=== PATIENT | male | born 1950 | race Caucasian/White ===

== ENCOUNTER 2019-06-10 09:43 | Outpatient (CLI) | payer MEDICARE, SELFPAY ==
--- NOTE | ~2019-06-10 | NM_ITS ---
NM bone 3 phase INDICATION: Left knee pain TECHNIQUE: The patient was injected with 25.9 mCi Tc 99m HDP. Gamma camera images of the region of i nterest and whole body were obtained. Three-phase images were obtained. COMPARISON: None FINDINGS: There is normal distribution of radiopharmaceutical throughout the skeletal and soft tissue structures. No focal asymmetry is identified. Photopenic defects in the knees are noted consistent w ith bilateral knee arthroplasties. Initial blood flow and pool images are symmetric. IMPRESSION: 1: No scintigraphic evidence for abnormality of the knees. There is evidence for bilateral knee arth roplasties. Recommend plain film correlation. Reviewed, dictated and finalized at location A. IMPRESSION: 1: No scintigraphic evidence for abnormality of the knees. There is evidence f or bilateral knee arthroplasties. Recommend plain film correlation.
== END 2019-06-10 09:44 | disposition home or self-care (01) ==
LOC: ANHIMG 09:46
PROVIDERS: PCP Family Medicine
DX: M25.562 Pain in left knee (principal)
CPT/HCPCS: 78315; A9561

== ENCOUNTER 2019-12-16 12:55 | Outpatient (CLI) | payer MEDICARE, SELFPAY ==
[2019-12-16 13:49] LABS: Influenza Control Positive
== END 2019-12-16 12:56 | disposition home or self-care (01) ==
PROVIDERS: PCP Family Medicine; Visit Provider Family Medicine
DX: R50.9 Fever, unspecified (principal)
CPT/HCPCS: 87635; 87804; C9803; U0003

== ENCOUNTER 2021-05-21 10:20 | Outpatient (CLI) | payer MEDICARE, SELFPAY ==
--- NOTE | ~2021-05-21 | NM_ITS ---
EXAMINATION: NM bone 3 phase DATE: 05/21/2021 14:08 INDICATION: Knee pain TECHNIQUE: 23.6 mCi Tc-99m HDP by intravenous route. Scintigrams of the bilateral knees were obtaine d in angiographic, blood pool, and delayed phases. COMPARISON: None. FINDINGS: There are photopenic defects at both knees consistent with bilateral total knee arthroplasties. Rimma l symmetric distribution of activity on the angiographic phase images. There is relatively symmetric normal linear uptake along the margins of the both the left and right tibial trays. There is also rel atively symmetric uptake in the bilateral distal femurs which also appears to remain within normal li mits. IMPRESSION: 1. Expected appearance post bilateral total knee arthroplasties. Reviewed, dictated and finalized at location A. CLERKS SUPERVISOR
== END 2021-05-21 10:21 | disposition home or self-care (01) ==
LOC: ANHIMG 10:23
PROVIDERS: PCP Family Medicine; Visit Provider Orthopaedic Surgery
DX: M25.561 Pain in right knee (principal); Z96.653 Presence of artificial knee joint, bilateral
CPT/HCPCS: 78315; A9561

== ENCOUNTER 2022-01-05 11:37 | Day surgery (SDC) | payer MEDICARE, SELFPAY ==
[2021-12-21 12:47] VITALS: BMI 26.9
--- NOTE | 2022-01-04 17:58 | P.HP_ITS ---
History of Present Illness History of Present Illness Consent: Risks, benefits, and alternatives have been discussed and questions answered. Patient agrees to proceed with procedure. Chief complaint: History of Polyps Narrative: Mac Babb is a 71 year old male here for colon cancer screening. Five years ago he had a colonoscopy that the apparently showed lymphocytic colitis. It appears that he also had some small rectal polyps removed which were all hy perplastic. His father had colon cancer Review of Systems Review of Systems: All systems reviewed & are unremarkable except as noted in HPI and below PMFSH Past Medical History Medical History Hyperlipidemia Family History Family History Father Cerebrovascular accident Family history of congestive heart failure Sibling Malignant neoplasm of prostate Other Carcinoma of colon Family history of lung cancer Social History Social History Smoking status: Former smoker Second hand tobacco smoke exposure: No Smoking end date: 04/03/94 Alcohol intake: current Substance use type: does not use Living arrangements: with family Spiritual care concerns: No Meds Home Medications and Allergies Home Medications Medication Instructions Recorded Confirmed Type sodium sul 1.479 gram-potas ch See Rx Instructions PO PER PKG DIR 09/15/21 Rx 0.188 gram-magnes sul 0.225 gram #24 tabs tablet (Sutab) aspirin 81 mg capsule 81 mg PO DAILY 12/21/21 01/05/22 History diclofenac sodium 75 mg 75 mg PO DAILY 12/21/21 01/05/22 History tablet,delayed release doxycycline hyclate 50 mg tablet 50 mg PO DAILY 12/21/21 01/05/22 History ezetimibe 10 mg tablet 10 mg PO DAILY 12/21/21 01/05/22 History multivit with minerals-iron 18 1 tablet PO DAILY 12/21/21 01/05/22 History mg-folic ac 400 mcg-vit K 25 mcg tablet (Adults Multivitamin) Allergies Allergy/AdvReac Type Severity Reaction Status Date / Time No Known Allergies Allergy Verified 01/05/22 12:05 Exam Resp: Auscultation: clear to auscultation bilaterally Cardio: Rate: regular rate Rhythm: regular rhythm GI: GI Palp: Yes Soft to palpation and No Tenderness to palpation present (GI) Assessment and Plan Assessment and plan (1) Colon cancer screening: Code(s): Z12.11 - Encounter for screening for malignant neoplasm of colon Status: Acute Assessment and Plan: Colonoscopy with possible biopsy or polypectomy or cautery or injection of substances. (2) Family history of colon cancer: Code(s): Z80.0 - Family history of malignant neoplasm of digestive organs Status: Acute
[2022-01-05 12:16] VITALS: BMI 27.1
[2022-01-05 12:20] VITALS: BP 133/89; PULSE 72; RESP 16; TEMP 36.9; O2SAT 99
[2022-01-05] MEDS: LACTATED RINGERS 1,000 ML 150 ML IV CONT (12:31)
--- NOTE | 2022-01-05 12:53 | P.PNAN_ITS ---
Anes - Initial Pre Proc Eval Procedure: Operation Date: 01/05/22 13:15 Proposed Procedures p Screening Colonoscopy - Aris Joshua MD Date/Time: 01/05/22 12:53 Surgeon: Aris Joshua MD Pre Op Diagnosis: History of Polyps Patient Data Age: 71 Gender: M Height: 1.71 m Weight: 79.8 kg Last Vital Signs Temp 36.9 C 01/05/22 12:20 Pulse 72 01/05/22 12:20 Resp 16 01/05/22 12:20 BP 133/89 01/05/22 12:20 Pulse Ox 99 01/05/22 12:20 O2 Del Method Room Air 01/05/22 12:20 Allergies Allergy/AdvReac Type Severity Reaction Status Date / Time No Known Allergies Allergy Verified 01/05/22 12:05 Home Medications Medication Instructions Recorded Confirmed Type sodium sul 1.479 gram-potas ch See Rx Instructions PO PER PKG DIR 09/15/21 Rx 0.188 gram-magnes sul 0.225 gram #24 tabs tablet (Sutab) aspirin 81 mg capsule 81 mg PO DAILY 12/21/21 01/05/22 History diclofenac sodium 75 mg 75 mg PO DAILY 12/21/21 01/05/22 History tablet,delayed release doxycycline hyclate 50 mg tablet 50 mg PO DAILY 12/21/21 01/05/22 History ezetimibe 10 mg tablet 10 mg PO DAILY 12/21/21 01/05/22 History multivit with minerals-iron 18 1 tablet PO DAILY 12/21/21 01/05/22 History mg-folic ac 400 mcg-vit K 25 mcg tablet (Adults Multivitamin) Patient hx anesthesia problems: none Family hx anesthesia problems: none Results Review: All pre-operative results and documents have been reviewed as part of the pre- operative evaluation. PMFSH Past Medical History Medical History Hyperlipidemia Family History Family History Father Cerebrovascular accident Family history of congestive heart failure Sibling Malignant neoplasm of prostate Other Carcinoma of colon Family history of lung cancer Social History Social History Smoking status: Former smoker Second hand tobacco smoke exposure: No Smoking end date: 04/03/94 Alcohol intake: current Substance use type: does not use Living arrangements: with family Spiritual care concerns: No Anes - Eval Final PreProcedure Day of Procedure 01/05/22 12:53 Patient weight: overweight Heart: regular rate and rhythm Lungs: clear to auscultation Airway: Mallampati scale class 1 Neurological: alert and oriented Last oral intake: >/= 8 hours ASA classification: II Emergent: no Anesthetic plan: proceed Anesthesia type and monitoring: general GIVS and standard monitoring Results Review: All pre-operative results and documents have been reviewed as part of the pre- operative evaluation. Informed Consent: The patient's anesthetic plan and its attendant risks and benefits were discussed with the patient/family/POA. Questions were solicited and answers provided to the satisfaction of the patient/family/POA.
[2022-01-05 13:30] VITALS: BP 109/70; PULSE 87; RESP 16; O2SAT 100
[2022-01-05 13:40] VITALS: BP 108/82; PULSE 76; RESP 20; O2SAT 98
--- NOTE | 2022-01-05 13:47 | WPDANESPN ---
Anes - Prog Note Post-Op Date/Time: 01/05/22 13:47 Cardiovascular status: normal Respiratory status: normal Airway patency: baseline Mental status: baseline Post-Op hydration status: normal Vital Signs: Last Vital Signs Temp 36.9 C 01/05/22 12:20 Pulse 76 01/05/22 13:40 Resp 20 01/05/22 13:40 BP 108/82 01/05/22 13:40 Pulse Ox 98 01/05/22 13:40 O2 Del Method Room Air 01/05/22 13:40 Pain Score (VAS): 0 I/O: Intake & Output 01/04/22 01/05/22 01/05/22 23:59 07:59 15:59 Intake Total 200 Balance 200 Patient Feedback: Patient satisfied with anesthetic care.
[2022-01-05 13:50] VITALS: BP 121/86; PULSE 80; RESP 20; O2SAT 98
== END 2022-01-05 13:57 | disposition home or self-care (01) ==
PROVIDERS: PCP Family Medicine; Visit Provider Internal Medicine Gastroenterology
PROC: 0DJD8ZZ Inspection of Lower Intestinal Tract, Via Natural or Artificial Opening Endoscopic (ICD-10-PCS; CPT 45378; principal; 2022-01-05 13:15)
DX: Z12.11 Encounter for screening for malignant neoplasm of colon (principal)
CPT/HCPCS: 45380

== ENCOUNTER 2022-01-05 13:00 | Outpatient (NON) | payer MEDICARE, SELFPAY | END 2022-01-05 13:01 | disposition home or self-care (01) | LOC: ANHLAB 01-06 07:23 | PROVIDERS: PCP Family Medicine; Visit Provider Internal Medicine Gastroenterology | DX: Z12.11 Encounter for screening for malignant neoplasm of colon (principal) | CPT/HCPCS: 88305 ==

== ENCOUNTER → 2022-03-01 10:47 | Outpatient (CLI) | payer MEDICARE, SELFPAY ==
--- NOTE | ~2022-03-01 | MR_ITS ---
EXAMINATION: MR thoracic spine wo/w con DATE: 03/01/2022 12:01 INDICATION: Mid back pain. Left sided numbness. TECHNIQUE: Magnetic resonance imaging (MRI) of the thoracic spine was performed without and with 15 m L MultiHance intravenous contrast. COMPARISON: None FINDINGS: There is 6 degrees dextrocurvature of cervicothoracic spine. There is mild chronic height l oss of T7 and T8 vertebral bodies. There is mild chronic anterior wedging of T11 and T12 and L1 verte bral bodies. There is moderately decreased disc height at T7-T8 and mildly decreased disc height at T 9-T10. At T7-T8, the disc is bulging with mild central canal stenosis. At T8-T9, the disc is bulging with mild central canal stenosis. There is multilevel facet joint osteoarthritis, severe at multiple levels. On the right, there is mild neural foraminal stenosis at T1-T2 and T2-T3 and moderate neural foraminal stenosis at T9-T10. On the left, there is mild neural foraminal stenosis at T1-T2, T2-T3, a nd T9-T10. There is a syrinx in the spinal cord at T6-T7 with diameter of 3 mm and craniocaudal lengt h of 8 mm. IMPRESSION: 1. 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 2. Moderate thoracic spondylosis. Reviewed, dictated and finalized at location A. RSHED TENDER
== END ==
PROVIDERS: PCP Family Medicine; Visit Provider Psychiatry & Neurology Neurology
DX: R20.0 Anesthesia of skin (principal); M43.04 Spondylolysis, thoracic region
CPT/HCPCS: 72157; A9577

== ENCOUNTER 2023-11-01 10:42 | Outpatient (CLI) | payer MEDICARE, SELFPAY ==
--- NOTE | ~2023-11-01 | CT_ITS ---
Clinical Indication: Chronic cough, mediastinal widening CT Scan of the Chest with Contrast: Technique: Contiguous sections were acquired throughout the chest after intravenous administration of 75 cc of Omnipaque 350. Dose reduction technique was used on this scan by utilizing automated exposu re control and iterative reconstruction technique. The dose-length product (DLP) was 319.30 mGy-cm. Findings: There is no evidence of any significant mediastinal, hilar or axillary lymphadenopathy. There is no f illing defect in the pulmonary arterial tree to suggest pulmonary embolus. There is no evidence of ao rtic dissection or aneurysm. There is no evidence of pleural or pericardial effusion. The lungs are clear. No pulmonary nodules or infiltrates are noted. Images through the upper abdomen reveal no abnormalities. Impression: No evidence of pulmonary embolus, aortic dissection, or aortic aneurysm. Clear lungs. Reviewed, dictated and finalized at [facility]. Impression: No evidence of pulmonary embolus, aortic dissection, or aortic aneurysm. Clear lungs.
[2023-11-01 10:57] LABS: Estimated Glomerular Filt Rate 60
== END 2023-11-01 10:43 ==
LOC: MICIMG 10:43
PROVIDERS: PCP Family Medicine; Visit Provider Family Medicine
DX: R93.89 Abnormal findings on diagnostic imaging of other specified body structures (principal)
CPT/HCPCS: 71260; Q9967

== ENCOUNTER 2024-08-22 01:46 | Day surgery (SDC) | payer MEDICARE, SELFPAY ==
[2024-08-14 12:15] VITALS: BMI 28.0
--- OUTSIDE RECORDS SUMMARY | 2024-08-22 01:49 | XMS_ITS | Encounter Summary ---
Author Organization [facility] Address [address] [place] [address] Care Team Providers Care Roller Hand Name Role Phone Georgina Banks MD Primary Care Provider [phone] Encounter Details Date Type Department Care Team (Late st Contact Info) Description 03/14/2018 Lab Requisition [facility] [address] [facility], [place] [address] [place] [address] Social History Tobacco Use Types Packs/Day Years Used Date Smoking Tobacco: Never Assessed Sex and Gender Information Value Date Recorded Sex Assigned at Not on file Legal Sex Male 5:25 AM MARGARINE MAKER Gender Identity Not on file Sexual Orientation Not on file documented as of this encounter Plan of Treatment Not on file documented as of this encounter Procedures Procedure Name Priority Date/Time Associated Diagnosis Comments DERMATOPATHOLOGY Routine 03/13/2018 12:0 0 AM MARGARINE MAKER documented in this encounter Results * DERMATOPATHOLOGY (03/13/2018 12:00 AM MARGARINE MAKER) Case Report Dermatopathology Report Case: [id number] Authorizing Provider: Nik Parr MD Collected: 03/13/2018 12:00 AM Pathologist: Brina Elias MD Received: 03/14/2018 12:35 PM Specimen: Skin, left lat canthus 8 12:37 PM MARGARINE MAKER [facility]ORAT[facility] Final Diagnosis Specimen A. SKIN, left lat canthus: VERRUCA VULGARIS (B07.8) (see microscopic description) 12:37 PM [facility] DERMATOPATHOLOGY LABORATORY at [address] MARGARINE MAKER Clinical History R/O dys nevus. 12:37 PM [facility] DERMATOPATHOLOGY [facility]ORATORY Gross Description Specimen A: Received is one formalin filled container labeled with the patient's name and designated left lat canthus. The specimen consists of a shave biopsy measuring [id number]. Jar 0. 12:37 PM [facility] DERMATOPATHOLOGY LABORATORY Microscopic Description Specimen A. SKIN, left lat canthus: There is digitated epidermal hyperplasia, hypergranulosis, vacuolated granular layer cells, and compact hyperorthokeratosis . Additional deeper sections were obtained and reviewed. 12:37 PM [facility] DERMATOPATHOLOGY LABORATORY Disclaimer An external and internal positive and negative controls are appropriate for the histochemical, immunohistochemical and immunofluorescence stain(s) in this case (if any), except where stated explicitly. The performance characteristics of the stain(s) cited in this report were developed and its performance characteristic determined by the Dermatopathology Laboratory at [facility]. These tests need not be, and therefore are not, approved by the [place] Food and Drug Administration. The tests are used for clinical purposes. Billing Codes Specimen Charges Stain Charges 65022 1 12:37 PM [facility] DERMATOPATHOLOGY LABORATORY Embedded Images 12:37 PM [facility] DERMATOPATHOLOGY LABORATORY Pathology/Cytolog y TISSUE SPECIMEN FROM SKIN / Unknown 03/13/2018 03/14/2018 12:35 PM [facility] us Nik Parr MD LAB - PATHOLOGY/CYTOLOGY ORD ERABLES Final Result DERMATOPATHOLOGY LABORATORY [facility] - Department of Dermatology [facility] [facility], 5th Floor Lab B [address] [phone] documented in this encounter Visit Diagnoses Not on filedocumented in this encounter Additional Health Concerns Infection Onset Date Last Indicated Resolved Time COVID-19 Under Investigation 10/06/2019 10/06/2019 10/07/2019 6:11 PM CDT documented as of this encounter Care Teams Roller Hand Relationship Specialty Start Date End Date Georgina Banks MD [address] [place] [address] PCP - General 01/13/22 documented as of this encounter
--- OUTSIDE RECORDS SUMMARY | 2024-08-22 01:49 | XMS_ITS | Encounter Summary ---
Author Organization [facility] Address [address] [place] [address] Care Team Providers Care Precision Mechanical Instrument Maker Name Role Phone Georgina Banks MD Primary Care Provider [phone] Encounter Details Date Type Department Care Team (Late st Contact Info) Description 08/02/2017 Lab Requisition [facility] [address] [facility] [place] [address] [place] [address] Social History Tobacco Use Types Packs/Day Years Used Date Smoking Tobacco: Never Assessed Sex and Gender Information Value Date Recorded Sex Assigned at Not on file Legal Sex Male 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 Gender Identity Not on file Sexual Orientation Not on file documented as of this encounter Plan of Treatment Not on file documented as of this encounter Procedures Procedure Name Priority Date/Time Associated Diagnosis Comments DERMATOPATHOLOGY Routine 08/01/2017 12:0 0 AM CDT documented in this encounter Results * DERMATOPATHOLOGY (08/01/2017 12:00 AM CDT) Case Report Dermatopathology Report Case: [id number] Authorizing Provider: Nik Parr MD Collected: 08/01/2017 12:00 AM Pathologist: Brina Elias MD Received: 08/02/2017 12:43 PM Specimens: A) - Skin, right nape of neck inside hairline B) - Skin, glabella 8 3:43 PM CDT DERMATOPATHOLOGY LABORATORY Final Diagnosis Specimen A. SKIN, right nape of neck inside hairline: NEUROFIBROMA (D36.10) PRESENT AT MARGIN Specimen B. SKIN, glabella: DERMAL FIBROSIS (L90.5) SOLAR ELASTOSIS (L57.8) PRESENT AT MARGIN 3:43 PM T DERMATOPATHOLOGY LABORATORY at 1543 CDT Clinical History A: R/O BCC, LSC. B: R/O BCC, SCC, Scar tissue. Check margins. 3:43 PM CDT DERMATOPATHOLOGY LABORATORY Gross Description Specimen A: Received is one formalin filled container labeled with the patient's name and designated right nape of neck inside hairline. The specimen consists of a shave biopsy measuring [id number], the margin is inked green. Jar 0. Specimen B: Received is one formalin filled container labeled with the patient's name and designated glabella. The specimen consists of a shave (2 pieces) biopsy measuring [id number], [id number], the margin is inked green. Jar 0. 3:43 PM [facility] DERMATOPATHOLOGY LABORATORY Microscopic Description Specimen A. SKIN, right nape of neck inside hairline: Sections show a proliferation of spindled and S-shaped cells within the dermis. The stromal collagen is delicate and pale. This lesion is present at the margin of the specimen. Specimen B. SKIN, glabella: The epidermis is unremarkable. There is focal dermal fibrosis. Tumor is not present in the sections examined. The dermis also shows a proliferation of elastic fibers in the superficial dermis that are increased in thickness. Tumor is not seen. This fibrosis is present at the margin of the specimen. 3:43 PM [facility] DERMATOPATHOLOGY LABORATORY Disclaimer An external and internal positive and negative controls are appropriate for the histochemical, immunohistochemical and immunofluorescence stain(s) in this case (if any), except where stated explicitly. The performance characteristics of the stain(s) cited in this report were developed and its performance characteristic determined by the Dermatopathology Laboratory at [facility]. These tests need not be, and therefore are not, approved by the [place] Food and Drug Administration. The tests are used for clinical purposes. Billing Codes Specimen Charges Stain Charges 97431 40967 1 1 3:43 PM CDT DERMATOPATHOLOGY LABORATORY Embedded Images 8 3:43 PM CDT DERMATOPATHOLOGY LABORATORY Pathology/Cytology TISSUE SPECIMEN FROM SKIN / Unknown 08/01/2017 08/02/2017 12:43 PM CDT Miscellaneous samples (specimen) TISSUE SPECIMEN FROM SKIN / Unknown 08/01/2017 08/02/2017 12:43 PM CDT Nik Parr MD LAB - PATHOLOGY/CYTOLOGY ORD ERABLES Final Result DERMATOPATHOLOGY LABORATORY [facility] - Department of Dermatology [address] [place] [address], 5th Floor Lab [address] [phone] documented in this encounter Visit Diagnoses Not on filedocumented in this encounter Additional Health Concerns Infection Onset Date Last Indicated Resolved Time COVID-19 Under Investigation 10/06/2019 10/06/2019 10/07/2019 6:11 PM CDT documented as of this encounter Care Teams Precision Mechanical Instrument Maker Relationship Specialty Start Date End Date Georgina Banks MD [facility] [place] [address] PCP - General 01/13/22 documented as of this encounter
--- OUTSIDE RECORDS SUMMARY | 2024-08-22 01:49 | XMS_ITS | Clinical Summary ---
Author Organization [facility] Address [address] [place]: Epic Prelude ADT [place] [address] Care Team Providers Care Residential Recycle Driver Name Role Phone Unavailable Primary Care Provider Unavailabl e Social History Tobacco Use Types Packs/Day Years Used Date Smoking Tobacco: Never Assessed Sex and Gender Information Value Date Recorded Sex Assigned at Not on file Legal Sex Male 10:43 PM CDT Gender Identity Not on file Sexual Orientation Not on file Plan of Treatment Health Maintenance Due Date Last Done Comments DTAP/TDAP/TD VACCINES (1 - Tdap) 1970 COLORECTAL SCREENING 01/26/1996 Colorectal Cancer Screening 01/26/1996 FIT-DNA Q 3 years 01/26/1996 FIT/FOBT Q 1 year 01/26/1996 Flex Sig/CT Colonography Q 5 years 01/26/1996 PNEUMOCOCCAL VACCINE 50+ YEARS (1 of 1 - PCV) 01/26/20 ZOSTER VACCINE (1 of 2) 2001 INFLUENZA VACCINE (#1) 2023 RSV VACCINE (60+ or ) (1 - 1-dose 75+ series) 2026
--- OUTSIDE RECORDS SUMMARY | 2024-08-22 01:49 | XMS_ITS | Encounter Summary ---
Author Organization [facility] Healthcare Address [address] [place] [address] Care Team Providers Care Scale Clerk Name Role Phone Georgina Banks MD Primary Care Provider [phone] Mo Cullen MD Unavailable [phone] Jaime Pierce MD Unavailable [phone] Aris Joshua MD Unavailable [phone] Rhonda BarrettM Unavailable [phone] Sanjay Rodriguez MD, Trever Carlson Unavailable + [phone] Maximus Wilcox OD Unavailable [phone] Alexi May MD Unavailable Lucas Brito MD Primary Care Provider [phone] Encounter Details Date Type Department Care Team (Late st Contact Info) Description 07/17/2018 Telephone [facility] at [facility] [address] [place] [address] Ryan Agarwal MD 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 Not on file Not on file documented as of this encounter Plan of Treatment Not on file documented as of this encounter Visit Diagnoses Not on filedocumented in this encounter Additional Health Concerns Infection Onset Date Last Indicated Resolved Time COVID: Suspected 05/03/2024 05/03/2024 05/03/2024 6:22 PM FLOAT TENDER COVID: Suspected 05/03/2024 05/03/2024 05/03/2024 11:34 PM FLOAT TENDER documented as of this encounter Care Teams Scale Clerk Relationship Specialty Start Date End Date Georgina Banks MD PCP - General Family Medicine 06/25/18 09/25/23 Lucas Brito MD [facility] [address] [place] [address] PCP - General Family Medicine 09/26/23 Mo Cullen MD [address] [place] [address] [address] [place] [address] Consulting Physician Urology 09/26/23 Jaime Pierce MD [address] [address] Referring Physician Neurology 09/26/23 Aris Joshua MD [address] [place] [address] [address] [place] [address] Referring Physician Gastroenterology 09/26/23 Rhonda Barrett DPM [address] [place] [address] [place] [address] Consulting Physician Foot and Ankle Surg 09/26/23 [place] [address] [facility] [address] [place] [address] Consulting Physician Orthopedic Surgery 09/26/23 Maximus Wilcox OD [address] [place] [address] Optometry 09/26/23 Alexi May MD [address] [address] Referring Physician Dermatology 09/26/23 documented as of this encounter
--- OUTSIDE RECORDS SUMMARY | 2024-08-22 01:49 | XMS_ITS | Clinical Summary ---
Author Organization [facility] Address [address] [place] [address] Care Team Providers Care Live Truck Technician Name Role Phone Mo Cullen MD Unavailable [phone] Jaime Pierce MD Unavailable [phone] Aris Joshua MD Unavailable [phone] Rhonda Barrett DPM Unavailable [phone] Sanjay Rodriguez MD, [facility] Unavailable + [phone] Maximus Wilcox OD Unavailable [phone] Alexi May MD Unavailable Lucas Brito MD Primary Care Provider [phone] Allergies No known active allergies Medications artificial tears (SYSTANE) 0.3 % gel Apply to both eyes Active aspirin 81 mg enteric coated tablet Take 1 tablet (81 mg total) by mouth fuel cell repairer before breakfast Active doxycycline hyclate (VIBRAMYCIN) 50 mg capsule Take 1 capsule (50 mg total) by mouth 2 (two) times a day Active diclofenac DR (VOLTAREN) 50 mg EC tablet TAKE 1 TABLET (50 MG TOTAL) BY MOUTH 2 (TWO) TIMES A DAY NEEDED FOR PAIN TAKE WITH FOOD 200 tablet 1 4 Active ezetimibe (ZETIA) 10 mg tablet TAKE 1 TABLET BY MOUTH EVERY DAY 100 tablet 1 4 Active fish oil-dha-epa 1,200-144-216 mg capsule Take by mouth Activ e lactobacillus comb no.10 (Probiotic) 20 billion cell capsule Take by mouth Active promethazine-DM (PROMETHAZINE-D M) 1.25-3 mg/mL syrupIndication s:Acute cough Take 10 mL by mouth 4 (four) times a day as needed for cough 120 mL 5 Active Active Problems Problem Noted Date Diagnosed Date Encounter for Medicare annual wellness exam 03/03 Assessment & Plan (03/18/2024 11:29 AM MARKETING TRAFFIC COORDINATOR): A(n) yearly Medicare Annual Wellness Visit has been performed today. Mac Babb is not up to date on screening tests. He is in need of Prostate screening and AAA Screening. He is up to date on needed preventative vaccinations. We discussed healthy lifestyle habits, educational material has been given. Medications reviewed, changes documented as per the medical record and discussed with patient along with risks vs benefits. Specific topics reviewed: drugs, ETOH, and tobacco, importance of regular dental care, importance of regular exercise, importance of varied diet, limit TV, media violence, minimize junk food, and seat belts. Return in 6 months Diverticulosis 03/18/2024 Numbness and tingling sensation of skin 09/26/19 24 Assessment & Plan (09/26/2023 12:53 PM CDT): On left side of trunk, intermittent. Has seen Neurologist in the past and thought to be related to lumbar back pain (chronic). Mixed hyperlipidemia 09/26/2023 Assessment & Plan (09/26/2023 12:54 PM CDT): Continuing Zetia, no side effects reported. Updated labs ordered. Arthralgia of left knee 11/30/2022 Knee pain 11/30/2022 Impaired fasting glucose 11/17/2022 Arthralgia of right knee 09/21/2021 Insomnia 06/15/2020 Lymphocytic colitis 09/19/2019 Assessment & Plan (09/26/2023 12:53 PM CDT): Stable overall, follows with GI. Acute dermatitis 05/13/2018 Carcinoma of prostate 05/13/2018 Prostate Cancer Assessment & Plan (09/26/2023 12:52 PM CDT): Hx of prostate removal. Follows with Urology, has appt in the fall where they will check his PSA. Ocular rosacea Assessment & Plan (09/26/2023 12:52 PM CDT): Following with Dermatology. Inflammatory bowel disease Resolved Problems Problem Noted Date Diagnosed Date Resolved Date Persistent cough 09/26/2023 09/26/2023 Upper respiratory infection 09/26/2023 09/26/2023 Immunizations Immunization Administration Dates Next Due COVID-19 mRNA (Global Active) 0.3 m L (30 mcg) vaccine (12 years and up) 12/07/2023 Influenza, Quad, Adjuvantate d, Intramuscular 12/21/2020,12/30/2019 Influenza, Quadrivalent, Hig h Dose, Preservative Free, Intrr 12/19/2022,12/15/2021 Influenza, Trivalent, High D ose, Split, Preservative Free, Intramuscular 12/07/2023,12/28/2018,01/02/2018,02/07 Influenza, Trivalent, IM (MDV) 02/08/2013 Influenza, Unspecified 12/07/2023,2023(Deferred: Patient Refused),04/03/2022(Deferred: Patient Refused) Moderna SARS-CoV-2 Monovalen t Vaccination (12+ YRS) 05/26/2020,04/28/2020 Pneumococcal Conjugate PCV 13 03/10/2017 Pneumococcal Polysaccharide PPV23 01/02/2018 RSV Vaccine, Pref, Recombina nt, Subunit, Adjuvanted, PF, IM (Arexvy) 04/14/2023 Surgical History Surgery Date Site/Laterality Comments KNEE SURGERY 04/03/2007 - 04/02/2008 Bilateral [facility] PROSTATECTOMY 04/03/2002 - 04/02/2003 dr rosa m gray [facility] APPENDECTOMY 04/03/2016 - 04/02/2017 dr [facility] CARPAL TUNNEL RELEASE 04/03/2013 - 04/02/[address] [facility] TIBIA OSTEOTOMY Medical History Medical History Date Comments Prostate Cancer Inflammatory bowel disease Prostate cancer (HCC) Arthritis Lateral meniscus tear Carpal tunnel syndrome, bilateral Rosacea Ocular rosacea Family History Medical History Relation Name Comments Prostate cancer Brother Clotting disorder Daughter Cancer Father Stroke Father Brain cancer Maternal Grandfather Breast cancer Maternal Grandmother Lung cancer Mother cardiovascular disease Mother Relation Name Status Comments Brother Daughter Father Maternal Grandfather Maternal Grandmother Mother Social History Tobacco Use Types Packs/Day Years Used Date Smoking Tobacco: Former Cigarettes 1 30 1 974 - 2004 Tobacco Cessation:Counseling Given: Not Answered PHQ-2 Answer Date Recorded PHQ-2 Total Score (If total score is 3 or more points, staff should administer the PHQ-9) 0 03/18/2024 Sex and Gender Information Value Date Recorded Sex Assigned at Not on file Legal Sex Male 11:57 PM MARKETING TRAFFIC COORDINATOR Gender Identity Not on file Sexual Orientation Not on file 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 Not on file Not on file Obstetrics History Last Filed Vital Signs Vital Sign Reading Time Taken Comments Blood Pressure 124/74 05/03/2024 5:47 PM MARKETING TRAFFIC COORDINATOR Pulse 74 05/03/2024 5:47 PM MARKETING TRAFFIC COORDINATOR Temperature 36.7 C (98 F) 05/03/2024 5:47 PM MARKETING TRAFFIC COORDINATOR Respiratory Rate 18 05/03/2024 5:47 PM MARKETING TRAFFIC COORDINATOR Oxygen Saturation 98% 05/03/2024 5:47 PM MARKETING TRAFFIC COORDINATOR Inhaled Oxygen Concentration - - Weight 85.7 kg (189 lb) 05/03/2024 5:47 PM MARKETING TRAFFIC COORDINATOR Height 167.6 cm (5' 6 ) 05/03/2024 5:47 PM MARKETING TRAFFIC COORDINATOR Body Mass Index 30.51 05/03/2024 5:47 PM MARKETING TRAFFIC COORDINATOR Plan of Treatment Health Maintenance Due Date Last Done Comments Covid-19 Vaccine ( season) 2024 12/07/2023, 12/19/2022, 12/15/2021, Additional history exists Depression Screening 03/18/2025 03/18/2024, 09/26/19 24 Fall Risk Assessment 03/18/2025 03/18/2024, 09/26/2023, 11/14/2018 Well Visit 65+ 03/18/2025 03/18/2024 Zoster Vaccine (1 of 2) 03/18/2025 Post poned from 2001 (Insurance / Financial) DTaP/Tdap/Td Vaccine (1 - Tdap) 04/02/2025 Postponed from 1962 (Insurance / Financial) Prostate Cancer Screening-PSA 03/21/2026 03/21/2024 Colon Cancer Screening-Colonoscopy 01/02/2028 01/01/2023, 01/05/2022 Pneumococcal vaccine 65+ Completed 01/02/2018, 11/2016 Colon Cancer Screening-CT Colonography Discontinued 01/05/2022 Colon Cancer Screening-DNA Stool Discontinued 01/05/2022 Colon Cancer Screening-FIT Discontinued 01/05/2022 Colon Cancer Screening-Sigmoidoscopy Discontinued 01/05/2022 Hepatitis C Screening Completed 09/29/2023 Influenza Vaccine Completed 12/07/2023, , 12/19/2022, Additional history exists Hepatitis B Screening Completed 03/21/2024 Abdominal Aortic Aneurysm (AAA) Screen Completed 04/25/2024 Goals Goal Patient Goal Type Associated Problems Recent Progress Patient-Stated? Author CCM Chronic Pain Care Plan Chronic Care Management Sylvia Mckeon, RN Note: Problem: Chronic Pain Goals: 1. Minimize further functional decline 2. Maximize quality of life 3. Control pain Strategies: - Activity/exercise program recommendation - Conservative stepwise pain medicine strategy with multi-disciplinary approach - Recommend healthy lifestyle strategies and compensatory methods as needed Procedures Procedure Name Priority Date/Time Associated Diagnosis Comments US ABDOMINAL AORTIC ANEURYSM SCREENING Schedule Routine, Read Routine (OP Routine) 04/25/2024 10:12 AM MARKETING TRAFFIC COORDINATOR Screening for abdominal aortic aneurysm PSA SCREEN Routine 03/21/2024 10:05 AM MARKETING TRAFFIC COORDINATOR HEPATITIS C ANTIBODY Routine 09/29/2023 9:18 AM CDT Encounter for hepatitis C screening test for low risk patient HM COLONOSCOPY Routine 01/05/2022 1:59 PM CDT from Last 3 Months or Most Recently Relevant to Health Maintenance Results * US Abdominal Aortic Aneurysm Screening (04/25/2024 10:12 AM MARKETING TRAFFIC COORDINATOR) Anatomical Region Laterality Modality Abdomen Ultrasound 04/25/2024 11:5 4 PM MARKETING TRAFFIC COORDINATOR Narrative 04/25/2024 11:55 PM MARKETING TRAFFIC COORDINATOR EXAM DESCRIPTION: US ABDOMINAL AORTIC ANEURYSM SCREENING REASON FOR STUDY: screen aaa TECHNIQUE: Grayscale images acquired of the aorta and stored on PACS. Selected color Doppler and spectral images recorded. COMPARISON: None FINDINGS: AORTIC CALIBER MAXIMAL PROXIMAL: 2.6 cm. MID: 1.9 cm. DISTAL: 1.9 cm. ILIAC DIAMETER RIGHT: 1.3 cm. LEFT: 1.1 cm. OTHER: No other significant finding. IMPRESSION: No abdominal aortic aneurysm. REFERENCE: Please see below follow up recommendations for abdominal aortic aneurysm surveillance per Society for Vascular Surgery Guidelines: < 2.6 cm No follow up or future screenings necessary 2.62.9 cm Recommended ultrasound follow up every 5 years 3.0-3.4 cm Recommended ultrasound follow up every 3 years 3.5-3.9 cm Recommended ultrasound follow up every 12 months 4.0-4.9 cm Recommended ultrasound follow up every 12 months, vascular surgery consult 5.0-5.4 cm Recommended ultrasound follow up every 6 months, vascular surgery consult >= 5.5 cm Referral to vascular surgeon Based upon Society for Vascular Surgery Guidelines: J Vasc Surgery 2008 50: s2-s49; updated Apr 2017 J Vasc Surgery 67:2-77 THIS IS AN ELECTRONICALLY VERIFIED FINAL REPORT 04/25/2024 11:55 PM - Electronically signed by Anshul Roto M.D. KT: KT Report ID: [id number] Reading Location: [id number] Procedure Note Anshul Root MD - 04/25/2024 EXAM DESCRIPTION: US ABDOMINAL AORTIC ANEURYSM SCREENING REASON FOR STUDY: screen aaa TECHNIQUE: Grayscale images acquired of the aorta and stored on PACS.Selected color Doppler and spectral images recorded. COMPARISON: None FINDINGS: AORTIC CALIBER MAXIMAL PROXIMAL: 2.6 cm. MID: 1.9 cm. DISTAL: 1.9 cm. ILIAC DIAMETER RIGHT: 1.3 cm. LEFT: 1.1 cm. OTHER: No other significant finding. IMPRESSION: No abdominal aortic aneurysm. REFERENCE: Please see below follow up recommendations for abdominal aortic aneurysm surveillance per Society for Vascular Surgery Guidelines: < 2.6 cm No follow up or future screenings necessary 2.62.9 cm Recommended ultrasound follow up every 5 years 3.0-3.4 cm Recommended ultrasound follow up every 3 years 3.5-3.9 cm Recommended ultrasound follow up every 12 months 4.0-4.9 cm Recommended ultrasound follow up every 12 months, vascularsurgery consult 5.0-5.4 cm Recommended ultrasound follow up every 6 months, vascularsurgery consult >= 5.5 cm Referral to vascular surgeon Based upon Society for Vascular Surgery Guidelines: J Vasc Surgery 2009Oct 50: s2-s49; updated Apr 2017 J Vasc Surgery 67:2-77 THIS IS AN ELECTRONICALLY VERIFIED FINAL REPORT 04/25/2024 11:55 PM - Electronically signed by Anshul Root M.D. KT: RENE Report ID: [id number] Reading Location: [place] [address] Lucas Brito MD IMG US PROCEDURES Final Res ult * PSA screen (03/21/2024 10:05 AM MARKETING TRAFFIC COORDINATOR) Pathologist [facility] PSA <0.1 0.0 - 4.0 ng/mL [facility] - Comment: Jean Carlos ECLIA methodology. According to the [place] U[employer] Association, Serum PSA should decrease and remain at undetectable levels after radical prostatectomy. The AUA defines biochemical recurrence as an initial PSA value 0.2 ng/mL or greater followed by a subsequent confirmatory PSA value 0.2 ng/mL or greater. Values obtained with different assay methods or kits cannot be used interchangeably. Results cannot be interpreted as absolute evidence of the presence or absence of malignant disease. 03/21/2024 10:0 5 AM MARKETING TRAFFIC COORDINATOR 03/21/2024 Narrative [facility] - 03/22/2024 2:09 PM MARKETING TRAFFIC COORDINATOR Performed at: [address] [id number] Show Design Supervisor: Colt Brumfield PhD, Phone: [phone] Lucas Brito MD LAB BLOOD ORDERABLES Final Result [facility] - 01 * Hepatitis C antibody Blood (09/29/2023 9:18 AM CDT) Hep C Ab NON-REACTI VE NON-REACT OMI [facility] Comment: HCV antibody was non-reactive. There is no laboratory evidence of HCV infection. In most cases, no further action is required. However, if recent HCV exposure is suspected, a test for HCV RNA (test code 68677) is suggested. For additional information please refer to http://education.Yapmo/faq/QBS82d0 (This link is being provided for informational/ educational purposes only.) Blood 09/29/2023 9:18 AM CDT 09/29/2023 9:18 AM CDT Narrative [facility] - 10/01/2023 8:30 AM CDT FASTING:YES FASTING: YES Nena Kumari NP LAB MICROBIOLOGY - GENERAL ORDER DAHLIA Final Result Performing Organization Address City/[facility] Co de Phone Number [facility] [address] [place] [address] * HM COLONOSCOPY (01/05/2022 1:59 PM CDT) Historical Provider HEALTH MAINTENANCE Final Result from Last 3 Months or Most Recently Relevant to Health Maintenance Insurance [facility] MDCR HMO REF [facility] Address: [address] [address] [place] [address] [facility] MEDICARE ADVANTAGE [facility] Address: [address] [address] [place] [address] Advance Directives For more information, please contact: [phone] Documents on File Type Date Recorded Patient Repeat Photocomposing Machine Operator Expl anation ADVANCE DIRECTIVE 03/18/2024 11:41 AM [facility] Care Teams Live Truck Technician Relationship Specialty Start Date End Date Lucas Brito MD [address] [facility] [address] [place] [address] PCP - General Family Medicine 09/26/23 Mo Cullen MD [address] [place] [address] Consulting Physician Urology 09/26/23 Jaime Pierce MD [address] [place] [address] Referring Physician Neurology 09/26/23 Aris Joshua MD [address] [facility] [address] [facility] [address] [place] [address] Referring Physician Gastroenterology 09/26/23 Rhonda Barrett DPM [address] [place] [address] Consulting Physician Foot and Ankle Surg 09/26/23 [place] [address] [place] [address] Consulting Physician Orthopedic Surgery 09/26/23 Maximus Wilcox [place] [address] Optometry 09/26/23 Alexi May MD [address] [place] [address] [address] Referring Physician Dermatology 09/26/23
--- OUTSIDE RECORDS SUMMARY | 2024-08-22 01:49 | XMS_ITS | Referral Summary ---
Author Organization [facility] Address [address] [place] [address] Care Team Providers Care Manager Meat Name Role Phone Mo Cullen MD Unavailable [phone] Jaime Pierce MD Unavailable [phone] Aris Joshua MD Unavailable [phone] Rhonda Barrett DPM Unavailable [phone] Sanjay Rodriguez MD, [facility] Unavailable + [phone] Maximus Wilcox OD Unavailable [phone] Alexi May MD Unavailable Lucas Brito MD Primary Care Provider [phone] Allergies No known active allergies Medications artificial tears (SYSTANE) 0.3 % gel Apply to both eyes Active aspirin 81 mg enteric coated tablet Take 1 tablet (81 mg total) by mouth rail transit operator before breakfast Active doxycycline hyclate (VIBRAMYCIN) 50 [...] 03/03 Assessment & Plan (03/18/2024 11:29 AM FLIGHT DYNAMICIST): A(n) yearly Medicare Annual Wellness Visit has [...] Immunization Administration Dates Next Due COVID-19 mRNA ([employer]) 0.3 m L (30 mcg) vaccine (12 [...] nt, Subunit, Adjuvanted, PF, IM (Arexvy) 04/14/2023 Social History Tobacco Use Types Packs/Day Years [...] on file Legal Sex Male 11:57 PM FLIGHT DYNAMICIST Gender Identity Not on file Sexual Orientation Not on file 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 on file Not on file Last Filed Vital Signs Vital Sign Reading Time Taken Comments Blood Pressure 124/74 05/03/2024 5:47 PM FLIGHT DYNAMICIST Pulse 74 05/03/2024 5:47 PM FLIGHT DYNAMICIST Temperature 36.7 C (98 F) 05/03/2024 5:47 PM FLIGHT DYNAMICIST Respiratory Rate 18 05/03/2024 5:47 PM FLIGHT DYNAMICIST Oxygen Saturation 98% 05/03/2024 5:47 PM FLIGHT DYNAMICIST Inhaled Oxygen Concentration - - Weight 85.7 kg (189 lb) 05/03/2024 5:47 PM FLIGHT DYNAMICIST Height 167.6 cm (5' 6 ) 05/03/2024 5:47 PM FLIGHT DYNAMICIST Body Mass Index 30.51 05/03/2024 5:47 PM FLIGHT DYNAMICIST Plan of Treatment Not on file Goals Goal Patient Goal Type Associated Problems [...] Read Routine (OP Routine) 04/25/2024 10:12 AM FLIGHT DYNAMICIST Screening for abdominal aortic aneurysm PSA SCREEN Routine 03/21/2024 10:05 AM FLIGHT DYNAMICIST HEPATITIS C ANTIBODY Routine 09/29/2023 9:18 AM CDT Encounter for hepatitis C screening test for low risk patient HM COLONOSCOPY Routine 01/05/2022 1:59 PM CDT from Last 3 Months or Most Recently Relevant to Health Maintenance Results * US Abdominal Aortic Aneurysm Screening (04/25/2024 10:12 AM FLIGHT DYNAMICIST) Anatomical Region Laterality Modality Abdomen Ultrasound 04/25/2024 11:5 4 PM FLIGHT DYNAMICIST Narrative 04/25/2024 11:55 PM FLIGHT DYNAMICIST EXAM DESCRIPTION: US ABDOMINAL AORTIC ANEURYSM SCREENING [...] Anshul Root M.D. KT: RENE Report ID: [id number] Reading Location: [place] [address] Procedure Note Anshul Root MD - 04/25/2024 [...] Anshul Root M.D. KT: RENE Report ID: [id number] Reading Location: [place] [address] us Lucas Brito MD IMG US PROCEDURES Final Res ult * PSA screen (03/21/2024 10:05 AM FLIGHT DYNAMICIST) PSA <0.1 0.0 - 4.0 ng/mL [facility] - 01 Comment: Jean Carlos ECLIA methodology. According to the [place] U[employer] Association, Serum PSA should decrease and [...] of malignant disease. 03/21/2024 10:0 5 AM FLIGHT DYNAMICIST 03/21/2024 Narrative [facility] - 03/22/2024 2:09 PM FLIGHT DYNAMICIST Performed at: [address] [id number] [employer]: Colt Brumfield PhD, Phone: [phone] us Lucas Brito MD LAB BLOOD ORDERABLES Final Result [facility] - 01 * Hepatitis C antibody Blood (09/29/2023 9:18 AM CDT) Hep C Ab NON-REACTI VE NON-REACT OMI [facility] Comment: HCV antibody was non-reactive. There is no laboratory evidence of HCV infection. In most cases, no further action is required. However, if recent HCV exposure is suspected, a test for HCV RNA (test code 42663) is suggested. For additional information please refer to http://education.fluid Operations/faq/UKV70e8 (This link is being provided for informational/ educational purposes only.) Blood 09/29/2023 9:18 AM CDT 09/29/2023 9:18 AM CDT Narrative [facility] - 10/01/2023 8:30 AM CDT FASTING:YES FASTING: YES Nena Kumari NP LAB MICROBIOLOGY - GENERAL ORDER DAHLIA Final Result [facility] [address] [place] [address] * HM COLONOSCOPY (01/05/2022 1:59 PM CDT) Historical Provider HEALTH MAINTENANCE Final Result from Last 3 Months or Most Recently Relevant to Health Maintenance Insurance [facility] MDCR HMO REF [facility] MEDICARE ADVANTAGE Advance Directives For more information, please contact: [phone] Documents on File Type Date Recorded Patient Gizzard Puller Expl anation ADVANCE DIRECTIVE 03/18/2024 11:41 AM Neyda ing Will Care Teams Manager Meat Relationship Specialty Start Date End Date Lucas Brito MD [address] [facility] [address] [place], [place] [id number] PCP - General Family Medicine 09/26/23 Mo Cullen MD [address] [place] [address] Consulting Physician Urology 09/26/23 Jaime Pierce MD [address] [place] [address] Referring Physician Neurology 09/26/23 Aris Joshua MD [address] [facility] [address] [facility] [address] [place] [address] Referring Physician Gastroenterology 09/26/23 Rhonda Barrett DPM [address] [place] [address] [place] [address] Consulting Physician Foot and Ankle Surg 09/26/23 [place] [address] [place] [address] Consulting Physician Orthopedic Surgery 09/26/23 Maximus Wilcox OD [address] [place] [address] Optometry 09/26/23 Alexi May MD [address] [address] Referring Physician Dermatology 09/26/23
--- OUTSIDE RECORDS SUMMARY | 2024-08-22 01:49 | XMS_ITS | Encounter Summary ---
Author Organization [facility] Address [address] [place] [address] Care Team Providers Care [employer] Name Role Phone Georgina Banks MD Primary Care Provider [phone] Encounter Details Date Type Department Care Team (Late st Contact Info) Description 10/06/2019 Lab Requisition [facility] [address] [place] [address] Timi Cooney, DO [address] [place] [address] Social History Tobacco Use Types Packs/Day Years Used Date Smoking Tobacco: Never Assessed Sex and Gender Information Value Date Recorded Sex Assigned at Not on file Legal Sex Male 5:25 AM SATELLITE SPECIALIST Gender Identity Not on file Sexual Orientation Not on file documented as of this encounter Plan of Treatment Not on file documented as of this encounter Procedures Procedure Name Priority Date/Time Associated Diagnosis Comments SARS-COV-2 (COVID-19) IN HOUSE Routine 10/06/2019 10:50 AM CDT documented in this encounter Results * SARS-COV-2 (COVID-19) IN HOUSE (10/06/2019 10:50 AM CDT) COVID-19 PCR Not detected Not detected, Invalid 10/07/2019 6:11 PM CDT [facility] Microbiology SPECIMEN FROM NASOPHARYNGEAL STRUCTURE / Unknown Collection / Unknown 10/06/2019 10:50 AM CDT 10/06/2019 4:34 PM CDT Narrative [facility] - 10/07/2019 6:11 PM CDT This Real Time RT-PCR assay was developed and its performance characteristics determined by [facility]. This test has been authorized by the Food and Drug administration (FDA)under an Emergency Use Authorization (EUA). This test has been validated in accordance with the FDA's guidance document Policy for Diagnostic Testing in Laboratories Certified to perform High Complexity Testing under CLIA prior to Emergency Use Authorization for Coronavirus Disease-2019 during the Public Health Emergency issued on June 01, 2019. FDA independent review of this validation is pending. This test is only authorized for the duration of time the declaration that circumstances exist justifying the authorization of emergency use of in vitro diagnostic tests for detection of SARS-CoV-2 virus and/or diagnosis of COVID-19 infection under section 564(b)(1) of the Act, 21 U.S.C 360bbb-3 (b)(1), unless the authorization is terminated or revoked sooner. Timi Cooney DO LAB - MICROBIOLOGY ORDERABLES F inal Result [facility] [address] [place], [place] [address], [facility] [phone] documented in this encounter Visit Diagnoses Not on filedocumented in this encounter Additional Health Concerns Infection Onset Date Last Indicated Resolved Time COVID-19 Under Investigation 10/06/2019 10/06/2019 10/07/2019 6:11 PM CDT documented as of this encounter Care Teams [employer] Relationship Specialty Start Date End Date Georgina Banks MD [address] [place] [address] [address] [place] [id number] PCP - General 01/13/22 documented as of this encounter
--- OUTSIDE RECORDS SUMMARY | 2024-08-22 01:50 | XMS_ITS | Clinical Summary ---
Author Organization [facility] Address [address] 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 This disclosure is being madepursuant to the Care Everywhere program and may not contain all information available regarding this patient. 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 Gender Identity Not on file Sexual Orientation Not on file Plan of Treatment Health Maintenance Due Date Last Done Comments COLOGUARD (AGES 45-75) - COL ON CA SCREENING 1951 COLON MONITORING 1951 COLONOSCOPY - COLON CA SCREENING 1951 CT COLONOGRAPHY - COLON CA SCREENING 1950 Colorectal Cancer Screening 1951 FIT - COLON CA SCREENING 1951 FLEX SIG - COLON CA SCREENING 1951 LIPID TESTING 1951 HEPATITIS C SCREENING 01/20/1969 DTAP/TDAP/TD VACCINES (1 - Tdap) 1970 PNEUMOCOCCAL VACCINE 50+ (1 of 1 - PCV) 2001 ZOSTER VACCINE (1 of 2) 2001 COVID-19 VACCINE ( - 2023-2 5 season) 2023 DEPRESSION SCREENING 04/03/2024 INFLUENZA VACCINE (Season Ended) 2024 Respiratory Syncytial Virus (RSV) Vaccine Pt: or over 60 yrs (1 - 1-dose 75+ series) 2026 HEPATITIS B VACCINE Aged Out No longe r eligible based on patient's age to complete this topic HIB VACCINE Aged Out No longer eligi ble based on patient's age to complete this topic HPV VACCINE Aged Out No longer eligi ble based on patient's age to complete this topic MENINGOCOCCAL (Group B) VACC INE SHARED DECISION-MAKING Aged Out No longer eligibl e based on patient's age to complete this topic MENINGOCOCCAL GROUPS A/C/Y/W VACCINE Aged Out No longer eligible b ased on patient's age to complete this topic Insurance [employer] MANAGED MEDICARE ADV Care Teams Mushroom Laborer Relationship Specialty Start Date End Date Georgina Banks MD [facility] [place] [address] PCP - General 01/13/22
--- OUTSIDE RECORDS SUMMARY | 2024-08-22 01:50 | XMS_ITS | Continuity of Care Document ---
Author Organization [facility] Address [address] [place] [address] Phone Care Team Providers Care Hat Trimmer Name Role Phone Edmund Manuel MD Unavailable Unavailable Allergies, Adverse Reactions, Alerts Substance Reaction Status Criticality No Known Allergies Active No Inform ation Medications Medication Instructions Dosage Effective Dates (start - stop) Status Comments [place] 5 mg-325 mg tablet take 1- 2 tablets by oral route every 6 hours as needed for pain - Active IBUPROFEN (unknown strength) Not Available - Active Procedures Procedure Date POSTOP FOLLOW-UP VISIT POSTOP FOLLOW-UP VISIT POSTOP FOLLOW-UP VISIT POSTOP FOLLOW-UP VISIT POSTOP FOLLOW-UP VISIT OFFICE/OUTPATIENT VISIT [facility] Advance Directives Directive Yes / No Effective Date File Name Other Directive No N/A N/A WARNING:The information contained in this section is historical and is provided for information only and does not constitute a legal document or any assurance that the information is still accurate. Please verify the information with the braden of the legal document before using it for clinical purposes. Encounters Encounter Description Practice Location Reason(s) For Visit Diagnoses Date Provider Providers Copied on Encounter [facility], [address], [place], [address], tel:[phone] [facility] No Information 9 Kaleb Shaffer. [address], [place], [id number] . tel: [phone] [facility], [address] [address], [place], [address], [place] tel:[phone] [facility] Aftercare following surgeryCarpal tunnel syndrome 5 Aruna Morrsi. [address] , [place], [place], [id number] . tel: [phone] [facility], [address] [address], [place], [address], [place] tel:[phone] [facility] Aftercare following surgeryCarpal tunnel syndrome 4 Aruna Morris. [address], [place], [place], [address] . tel: [phone] [facility], [address] [address], [place], [address], [place] tel:[phone] [facility] Carpal tunnel syndrome 4 Aruna Morris. [address] [facility], [place], [place], [address] . tel: [phone] [facility], [address] [address], [place], [address], [place] tel:[phone] [facility] No Information 4 Aruna Morris. [address] [facility], [place], [place], [address] . tel: [phone] [facility], [address], [address], [place] tel:[phone] [facility] Carpal tunnel syndrome 4 Aruna Morris. [address] [facility] [facility], [place], [place], [address] . tel: [phone] [facility], [address], [address], [place] tel:[phone] [facility] Aftercare following surgeryCarpal tunnel syndrome 4 Aruna Morris. [address] [facility], [place], [place], [address] . tel: [phone] OFFICE/OUTPA TIENT VISIT NEW [facility], [address], [place], [address], [place] tel:[phone] [facility] Carpal tunnel syndrome 4 Aruna Morris. [address], [place], [place], [address] . tel: [phone] Referring Provider: Brady Orr Retired*, [address], [place], [address]. tel:[phone] Family History Family Member Type Diagnosis Age At Onset Father Problem (finding) stroke (Cause Of ) Father Problem (finding) Brother Problem (finding) prostate cancer Mother Problem (finding) malignant neop lasm of lung (Cause Of ) Mother Problem (finding) Father Problem (finding) cancer of colon Mother Problem (finding) congestive heart failur e Payers Payer name Insurance type Covered green party ID [id number] rubio(s) [employer] Medicare Complete HMO OT [id number] Social History Type Description Quantity Date Captured Comments Alcohol Use Details Unknown Caffeine Use Details Unknown Tobacco Use Status Smoking Status No Information Sex Male Chief Complaint And Reason For Visit No Information Reason For Referral Reason For Referral No Information Plan Of Treatment Date Type Action Status Goal Tobacco cessation counseling completed Goal Smoking effects education co mpleted Goal Tobacco cessation counseling completed Goal Smoking cessation education completed Goal Tobacco cessation counseling completed Goal Smoking cessation education completed History Of Present Illness Encounter Date Complaint History Of Prese nt Illness No Information Functional Status Date Functional Assessmen t No Information Instructions Date Instruction Additional Infor mation Activity as tolerated. Related t o Carpal tunnel syndrome Activity as tolerated. Related t o Carpal tunnel syndrome Activity as tolerated. Related t o Carpal tunnel syndrome Wear splint/cast as directed Rel ated to Carpal tunnel syndrome Activity as tolerated. Related t o Carpal tunnel syndrome Activity as tolerated. Related t o Carpal tunnel syndrome Assessments Type Assessment Date No Information Patient Care Teams Name Effective Dates (start - stop) Status Members No Information
--- OUTSIDE RECORDS SUMMARY | 2024-08-22 01:50 | XMS_ITS | Data Portability ---
Author Organization [place] - [facility], Main Office Address [address] [place] [address] Care Team Providers Care Underwear Finisher Name Role Phone GEORGINA MORENO Primary Care Provider GEORGINA MORENO Referring Provider Assessment No assessment recorded. Plan of Treatment Reminders Order Date Submit Date Provider Last Modified By Organization Details Last Modified Time Details Appointments None recorded . Lab HbA1c (hemoglo bin A1c), blood 023 11/18/19 23 [facility], [address] [place] [address] 2, [place], [address], 3 03:08:05 lipid panel, serum 023 11/18/19 23 [facility], [address] [place] [address] 2, [place], [address], 3 03:08:04 CMP, serum or plasma 023 11/18/19 23 [facility], [address] [place] [address] 2, [place], [address], 3 03:08:03 Referral None recorded . Procedures None recorded . Surgeries None recorded . Imaging None recorded . Medication Orders None recorded . Patient TargetsNo targets recorded. Patient Instructions Encounter Date Encounter Id Patient Instructions Last Modified By Organization Details Last Modified Time 11/17/2022 [id number] dementia rating scale-2* Not available 11/17/2022 12:22:33 alcohol misuse* Not available 11/17/2022 12:22:42 depression screening* Not available 11/17/2022 12:22:50 multi-dimensiona l health assessment questionnaire* [email or web address] Not available 11/17/2022 12:22:21 Personalized [facility] Plan and Screening Recommendations Advance Directives - Do you have one? Yes Advance Directives - Do we have your advance directive on file in your health record? No, please bring in a copy at your earliest convenience Primary Prevention/Interven tion (prevents or decreases the chance of common diseases from occurring) Smoking Risk: Non Smoker Alcohol Misuse Screening: Weight: Appropriate Physical activity: Appropriate physical activity Nutrition: Good Fall Risk (screened today): Low Vaccines Pneumococcal: Ordered Recommended today Recommended today, but you have declined No further needed Influenza: Your next one in the fall of this year Chronic Disease Risks Stroke: Low Risk I have no recommendations Heart Attack: Low risk I have no recommendations Clogging of the Arteries: Low risk I have no recommendations Diabetes: Low Risk I have no recommendations Secondary Prevention/Interven tion (detects treatable diseases before they may cause symptoms, disability, or ) Prostate Cancer Screening: No PSA screening necessary No digital rectal exam screening necessary Colon Cancer Screening: Colonoscopy Date Screening Last Performed: 05/2022 with repeat recommendation for 2 years Eye Disease Screening: Dementia Risk: Low I have no recommendations Depression Screening: Negative [email or web address] Not available 11/16/2022 12:26:32 Reason for Referral None Reported. Results Created Date Observation Date Name Description Value Unit Range Abnormal Flag Note LastModifiedBy Organization Detail LastModifiedTime 02/23/20 22 02/23/2022 COMPR EHENS OMI METAB OLIC PANEL glucose 105 mg/dL 65-99 high Fasti ng refer ence inter cecy For someo ne witho ut known diabe jose f, a gluco se value betwe en 100 and 125 mg/dL is consi stent with predi abete s and shoul d be confi rmed with a follo w-up test. Not Available [facility] [address] [place], [address], 02/23/2022 02:42:25 02/23/20 22 02/23/2022 COMPR EHENS OMI METAB OLIC PANEL urea nitrogen (BUN) 16 mg/dL 7-25 normal Not Available [facility] [address] [place], [address], 02/23/2022 02:42:25 02/23/20 22 02/23/2022 COMPR EHENS OMI METAB OLIC PANEL creatinine 1.06 mg/dL 0.70-1 .28 normal Not Available [address], [address], 02/23/2022 02:42:25 02/23/20 22 02/23/2022 COMPR EHENS OMI METAB OLIC PANEL eGFR 75 mL/mi n/1.7 3m2 > or = 60 normal The eGFR is based on the CKD-E PI 2020 equat ion. To calcu late the new eGFR from a previ ous Creat inine or Cysta marla C resul t, go to https ://racheal mccullough.shahab clark/samina kilgore s/ kdoqi /gfr% 5Fcal culat or Not Available [address], [address], 02/23/2022 02:42:25 02/23/20 22 02/23/2022 COMPR EHENS OMI METAB OLIC PANEL BUN/creatini ne ratio not applic able (calc ) 6-22 Not Available [address], [address], 02/23/2022 02:42:25 02/23/20 22 02/23/2022 COMPR EHENS OMI METAB OLIC PANEL sodium 138 mmol/ L 135-14 6 normal Not Available [address], [address], 02/23/2022 02:42:25 02/23/20 22 02/23/2022 COMPR EHENS OMI METAB OLIC PANEL potassium 4.3 mmol/ L 3.5-5. 3 normal Not Available [address], [address], 02/23/2022 02:42:25 02/23/20 22 02/23/2022 COMPR EHENS OMI METAB OLIC PANEL chloride 102 mmol/ L 98-110 normal Not Available [address], [address], 02/23/2022 02:42:25 02/23/20 22 02/23/2022 COMPR EHENS OMI METAB OLIC PANEL carbon dioxide 30 mmol/ L 20-32 normal Not Available [address], [address], 02/23/2022 02:42:25 02/23/20 22 02/23/2022 COMPR EHENS OMI METAB OLIC PANEL calcium 9.5 mg/dL 8.6-10 .3 normal Not Available [address], [address], 02/23/2022 02:42:25 02/23/20 22 02/23/2022 COMPR EHENS OMI METAB OLIC PANEL protein, total 7.1 g/dL 6.1-8. 1 normal Not Available [address], [address], 02/23/2022 02:42:25 02/23/20 22 02/23/2022 COMPR EHENS OMI METAB OLIC PANEL albumin 4.5 g/dL 3.6-5. 1 normal Not Available [address], [address], 02/23/2022 02:42:25 02/23/20 22 02/23/2022 COMPR EHENS OMI METAB OLIC PANEL globulin 2.6 g/dL_ (calc ) 1.9-3. 7 normal Not Available [address], [address], 02/23/2022 02:42:25 02/23/20 22 02/23/2022 COMPR EHENS OMI METAB OLIC PANEL albumin/glob ulin ratio 1.7 (calc ) 1.0-2. 5 normal Not Available [address], [address], 02/23/2022 02:42:25 02/23/20 22 02/23/2022 COMPR EHENS OMI METAB OLIC PANEL bilirubin, total 0.4 mg/dL 0.2-1. 2 normal Not Available [address], [address], 02/23/2022 02:42:25 02/23/20 22 02/23/2022 COMPR EHENS OMI METAB OLIC PANEL alkaline phosphatase 56 U/L 35-144 normal Not Available [address], [address], 02/23/2022 02:42:25 02/23/20 22 02/23/2022 COMPR EHENS OMI METAB OLIC PANEL AST 26 U/L 10-35 normal Not Available [address], [address], 02/23/2022 02:42:25 02/23/20 22 02/23/2022 COMPR EHENS OMI METAB OLIC PANEL ALT 15 U/L 9-46 normal Not Available [address], [address], 02/23/2022 02:42:25 02/23/20 22 02/23/2022 LIPID PANEL (REFL ) cholesterol, total 187 mg/dL <200 normal Not Available [address], [address], 02/23/2022 02:42:24 02/23/20 22 02/23/2022 LIPID PANEL (REFL ) HDL cholesterol 42 mg/dL > or = 40 normal Not Available [address], [address], 02/23/2022 02:42:24 02/23/20 22 02/23/2022 LIPID PANEL (REFL ) triglyceride s 140 mg/dL <150 normal Not Available [address], [address], 02/23/2022 02:42:24 02/23/20 22 02/23/2022 LIPID PANEL (REFL ) LDL-choleste rol 120 mg/dL _(fiorella c) high Refer ence range : <100 Placido able range <100 mg/dL for prima ry preve ntion ; <70 mg/dL for patie nts with CHD or diabe tic patie nts with > or = 2 CHD risk facto rs. LDL-C is now calcu lated using the Morena n-Hop kins calcu migueljim n, which is a valid ated novel metho d provi ding lorena r accur acy than the Fried fredy equat ion in the estim ation of LDL-C . Morena gutierrez SS et al. WESLEY. 2013; 310(1 9): 2061- 2068 (http ://ed ucati on.[employer] dainaWellcentive. com/f aq/FA Q164) Not Available [facility] [address] [place], [address], 02/23/2022 02:42:24 02/23/20 22 02/23/2022 LIPID PANEL (REFL ) chol/HDLC ratio 4.5 (calc ) <5.0 normal Not Available [facility] [address] [place], [address], 02/23/2022 02:42:24 02/23/20 22 02/23/2022 LIPID PANEL (REFL ) non HDL cholesterol 145 mg/dL _(fiorella c) <130 high For patie nts with diabe jose f plus 1 major ASCVD risk facto r, treat ing to a non-H DL-C goal of <100 mg/dL (LDL- C of <70 mg/dL ) is angel dumonto n. Not Available [facility] [address] [place], [address], 02/23/2022 02:42:24 12/10/19 23 12/10/2022 COMP. METAB OLIC PANEL (14) glucose 92 mg/dL 70-99 Not Available [facility] ([facility]) [address] [place], [place], [address], 12/10/2022 03:08:03 12/10/19 23 12/10/2022 COMP. METAB OLIC PANEL (14) BUN 16 mg/dL 8-27 Not Available [facility] [address] [facility] [place], [address], 12/10/2022 03:08:03 12/10/19 23 12/10/2022 COMP. METAB OLIC PANEL (14) creatinine 0.98 mg/dL 0.76-1 .27 Not Available [facility] ([facility]) [address] [place], [address], 12/10/2022 03:08:03 12/10/19 23 12/10/2022 COMP. METAB OLIC PANEL (14) eGFR 82 mL/mi n/1.7 3 >59 Not Available [facility] ([facility]) [address] [place], [place], [address], 12/10/2022 03:08:03 12/10/19 23 12/10/2022 COMP. METAB OLIC PANEL (14) BUN/creatini ne ratio 16 10-24 Not Available [facility] ([facility]) [address] [facility] [place], [address], 12/10/2022 03:08:03 12/10/19 23 12/10/2022 COMP. METAB OLIC PANEL (14) sodium 144 mmol/ L 134-14 4 Not Available [facility] ([facility]) [address] [facility] [place], [address], 12/10/2022 03:08:03 12/10/19 23 12/10/2022 COMP. METAB OLIC PANEL (14) potassium 5.2 mmol/ L 3.5-5. 2 Not Available [facility] ([facility]) [address] [facility], [address], 12/10/2022 03:08:03 12/10/19 23 12/10/2022 COMP. METAB OLIC PANEL (14) chloride 107 mmol/ L 96-106 above high normal Not Available [facility] ([facility]) [address] [facility], [place], [address], 12/10/2022 03:08:03 12/10/19 23 12/10/2022 COMP. METAB OLIC PANEL (14) carbon dioxide, total 24 mmol/ L 20-29 Not Available [facility] ([facility]) [address] [facility] [place], [address], 12/10/2022 03:08:03 12/10/19 23 12/10/2022 COMP. METAB OLIC PANEL (14) calcium 9.3 mg/dL 8.6-10 .2 Not Available [facility] ([facility]) [address] [facility], [address], 12/10/2022 03:08:03 12/10/19 23 12/10/2022 COMP. METAB OLIC PANEL (14) protein, total 6.5 g/dL 6.0-8. 5 Not Available [facility] ([facility]) [address] [facility], [address], 12/10/2022 03:08:03 12/10/19 23 12/10/2022 COMP. METAB OLIC PANEL (14) albumin 4.2 g/dL 3.8-4. 8 Not Available [facility] ([facility]) [address] [facility], [address], 12/10/2022 03:08:03 12/10/19 23 12/10/2022 COMP. METAB OLIC PANEL (14) globulin, total 2.3 g/dL 1.5-4. 5 Not Available [facility] ([facility]) [address] [facility], [address], 12/10/2022 03:08:03 12/10/19 23 12/10/2022 COMP. METAB OLIC PANEL (14) A/G ratio 1.8 1.2-2. 2 Not Available [facility] ([facility]) [address] [facility], [address], 12/10/2022 03:08:03 12/10/19 23 12/10/2022 COMP. METAB OLIC PANEL (14) bilirubin, total 0.7 mg/dL 0.0-1. 2 Not Available [facility] ([facility]) [address] [place], [address], 12/10/2022 03:08:03 12/10/19 23 12/10/2022 COMP. METAB OLIC PANEL (14) alkaline phosphatase 71 IU/L 44-121 Not Available [facility]) [address] [place], [address], 12/10/2022 03:08:03 12/10/19 23 12/10/2022 COMP. METAB OLIC PANEL (14) AST (SGOT) 25 IU/L 0-40 Not Available [facility] ([facility]) [address] [place], [address], 12/10/2022 03:08:03 12/10/19 23 12/10/2022 COMP. METAB OLIC PANEL (14) ALT (SGPT) 26 IU/L 0-44 Not Available [facility] ([facility]) [address] [place], [address], 12/10/2022 03:08:03 12/10/19 23 12/10/2022 LIPID PANEL cholesterol, total 230 mg/dL 100-19 9 above high normal Not Available [facility] ([facility]) [address] [place], [address], 12/10/2022 03:08:04 12/10/19 23 12/10/2022 LIPID PANEL triglyceride s 122 mg/dL 0-149 Not Available [facility] ([facility]) [address] [facility], [address], 12/10/2022 03:08:04 12/10/19 23 12/10/2022 LIPID PANEL HDL cholesterol 77 mg/dL >39 Not Available [facility] [address] [place], [address], 12/10/2022 03:08:04 12/10/19 23 12/10/2022 LIPID PANEL VLDL cholesterol fiorella 21 mg/dL 5-40 Not Available [facility] ([facility]) [address] [place], [address], 12/10/2022 03:08:04 12/10/19 23 12/10/2022 LIPID PANEL LDL chol calc ([facility]) 132 mg/dL 0-99 above high normal Not Available [facility] ([facility]) [address] [facility], [place], [address], 12/10/2022 03:08:04 12/10/19 23 12/10/2022 LIPID PANEL comment: DATABASE ANALYST Not Available [facility] ([facility]) [address] [facility], [place], [address], 12/10/2022 03:08:04 12/10/19 23 12/10/2022 HEMOG LOBIN A1C hemoglobin A1C 5.4 % 4.8-5. 6 Predi abete s: 5.7 - 6.4 Diabe jose f: >6.4 Glyce fred contr ol for adult s with diabe jose f: <7.0 Not Available [facility] ([facility]) [address] [facility] [place], [address], 12/10/2022 03:08:05 04/08/19 22 wrist 3vsw+ , davis [facility] [address], [place], [place] [address] [phone] Patien t Name: MELINA KENNEY Access ion #: [id number] Sex: M : 1949 7 Locati on: RA2 Attend ing Physic alexandra: ANI IB, RUNDA Orderi ng Physic alexandra: ANI IB, RUNDA Exam Date: 04/08/19 10:54 AM Exam Name: XR WRIST BILAT 3V+ Admitt ing Diagno sis(es ): RADIOL OGY REPORT - FINAL EXAM: XR WRIST BILAT 3V+ HISTOR Y: bilate ral wrist pain 71-yea r-old male with bilate ral wrist pain for 9 months , no known injury . The patien t has a histor y of bilate ral carpal tunnel surger y. COMPAR TAO: None availa ble. TECHNI QUE: Three views of the bilate ral wrists were perfor med. FINDIN GS: No acute fractu re is identi fied about either wrist. There is a left os styloi deum versus old fractu re of the ulnar styloi d. There is chondr ocalci nosis of the bilate ral triang ular fibroc artila ge comple xes. There is mild osteoa rthrit is bilate rally. There is mild ulna minus varian ce Page 1 of 2 [facility] Name: MELINA KENNEY Access ion #: [id number] Sex: M : 1949 7 Exam Date: 04/08/19 10:54 AM Exam Name: XR WRIST BILAT 3V+ Admitt ing Diagno sis(es ): of right wrist measur ing 3 mm. IMPRES MAIKEL: 1. No acute fractu re of either wrist. 2. Mild osteoa rthrit is bilate rally. 3. Mild ulna minus varian ce on the right. 4. Chondr ocalci nosis of the bilate ral TFCCs. Create d and electr onical ly signed by: Arturo delgado MD Signed Date: 04/08/19 11:36 AM (CT) Dictat ed by: Arturo delgado MD (CT) 22 11:36 AM (CT) Page 2 of [id number] [facility] ([facility]) [address] [place], [address], 06/01/2022 20:41:36 04/08/19 22 04/08/2021 XR, wrist , 3 or more view No observ ation record ed. [id number] [facility] [address] [place], [address], 06/01/2022 20:41:36 05/21/19 22 05/21/2021 imagi ng/di agnos tic resul t No observ ation record ed. [id number] [facility] [address], [place], [address], 06/01/2022 20:41:36 03/02/20 22 03/01/2022 imagi ng/di agnos tic resul t No observ ation record ed. [id number] [place] [address] Imaging [address], [place], [address], 06/01/2022 20:41:36 03/10/20 22 03/10/2022 LDCT, chest , for lung cance r scree baldemar No observ ation record ed. [id number] [facility] Add On Lab Orders [address] [place], [address], 06/01/2022 20:41:36 03/10/20 CT, chest , w/o contr ast [facility] [address] [facility] [place] [address] Patien t Name: MELINA KENNEY Access ion #: [id number] Sex: M : 1949 4 Locati on: RA2 Attend ing Physic alexandra: GEORGINA FINCH Orderi ng Physic alexandra: GEORGINA FINCH Exam Date: 022 10:58 AM Exam Name: CT CHEST WO Admitt ing Diagno sis(es ): RADIOL OGY REPORT - FINAL EXAM: CT CHEST WO HISTOR Y: solita ry nodule of lung 72-yea r-old male former smoker , lung cancer screen ing, histor y of prosta te cancer in 2005. COMPAR TAO: CT scan of the chest dated 2020. TECHNI QUE: Helica l CT images of the chest were perfor med withou t contra st. Sagitt al and corea l reform atted images were obtain ed. This CT exam was perfor med using one or more of the follow ing dose reduct ion techni ques: Automa weston exposu re contro l, adjust ment of the mA and/or kV accord ing to patien t size, or use of iterat omi recons tructi on techni que. FINDIN GS: There is a right upper lobe 3 mm noncal cified pulmon deann nodule (image 39, Page 1 of 3 [facility] Name: MELINA KENNEY Access ion #: [id number] Sex: M : 1949 4 Exam Date: 10:58 AM Exam Name: CT CHEST WO Admitt ing Diagno sis(es ): series 201), stable . There is a 2 mm right upper lobe noncal cified pulmon deann nodule (image 29, series 201), stable there is a right upper lobe 2 mm noncal cified pulmon deann nodule (image 64, series 201), stable . The lungs are hypere xpande d and hyperl ucent withou t bullou s emphys ematou s change s. No pneumo thorax , pulmon deann edema, pleura l effusi ons, or consol idativ e infilt rates. No suspic ious medias tinal or axilla ry adenop athy, althou gh there are rima us mildly promin ent lymph nodes in the subcar inal region , AP window , and paratr acheal region . The heart is not enlarg ed. There is border line ectasi a of the centra l pulmon deann arteri es. No thorac ic aortic aneury sm. There is bilate ral gyneco mastia . No fractu res are identi fied about the bony thorax . There is ill-de fined decrea sed attenu ation in the centra l liver near the dome measur ing 2.3 cm transv erse (image 202, series 201). IMPRES MAIKEL: 1. No acute intrat horaci c proces s. 2. Pulmon deann hypere xpansi on sugges tive of panlob ular emphys darian. 3. Subcen timete r right upper lobe noncal cified pulmon deann nodule s are stable since CT scan dated 2020. These should be follow ed accord ing to [facility] societ y guidel jessi. 4. Ill-de fined 2.3 cm decrea sed attenu ation in the centra l portio n of the liver near the dome. Recomm end follow -up multip hasic pre and post-c ontras t CT scan of the abdome n utiliz ing liver mass protoc ol for better charac teriza tion. Create d and electr onical ly signed by: Arturo delgado MD Signed Date: 12:12 PM (CT) Page 2 of 3 [facility] Patien t Name: MELINA KENNEY Access ion #: [id number] Sex: M : 1949 4 Exam Date: 10:58 AM Exam Name: CT CHEST WO Admitt ing Diagno sis(es ): Dictat ed by: Arturo delgado MD DD: 12:12 PM (CT) DT: 12:12 PM (CT) Page 3 of [id number] [facility] ([facility]) [address] [place], [address], 06/01/2022 20:41:36 03/17/20 22 03/16/2022 imagi ng/di agnos tic resul t No observ ation record ed. [id number] [facility] Add On Lab Orders [address] [place], [address], 06/01/2022 20:41:36 03/17/[address], abdom en, w/wo contr ast [facility] [address], [place] [address] [facility] Name: MELINA [facility]EN[facility] Access ion #: [id number] Sex: M : 1949 6 Locati on: RA2 Attend ing Physic alexandra: ELKHAT IB, RUNDA Orderi ng Physic alexandra: ELKHAT IB, RUNDA Exam Date: 2021 8:08 AM Exam Name: CT ABDOME N W/WO Admitt ing Diagno sis(es ): RADIOL OGY REPORT - FINAL EXAM: CT ABDOME N W/WO HISTOR Y: hepato megaly possib le liver mass COMPAR TAO: CT chest 2021 TECHNI QUE: Helica l CT images of the abdome n were perfor med pre and post admini strati on of 100 ml Isovue [address] using four-p hase liver protoc ol. This CT exam was perfor med using one or more of the follow ing dose reduct ion techni ques: Automa weston exposu re contro l, adjust ment of the mA and/or kV accord ing to patien t size, or use of iterat omi recons tructi on techni que. FINDIN GS: Liver: Image number [id number] demons trates a 2 cm area of low densit y at the Page 1 of 2 [facility] Name: MELINA KENNEY Access ion #: [id number] Sex: M : 1949 6 Exam Date: 2021 8:08 AM Exam Name: CT ABDOME N W/WO Admitt ing Diagno sis(es ): right hepati c dome correl ating with the findin g on the prior CT. The arteri al phase demons trates contra st within a dilate d portal vein compat ible with arteri ovenou s shunti ng. A dilate d hepati c artery is noted feedin g the 2 cm struct ure which enhanc e is homoge neous Laura on the arteri al phase. The portal venous phase demons trates furthe r enhanc ement with eviden ce of a draini ng hepati c vein. This area comple tely washes out at 10 minute s. These findin gs are consis tent with a hepati c arteri ovenou s malfor mation . There is a simple cyst of the inferi or aspect of the right hepati c lobe. Miscel laneou s: The spleen , pancre as, kidney s, gallbl adder, and adrena l glands are unrema rkable . No adenop athy, free air, or free fluid in the upper abdome n. No abnorm al bowel dilata tion althou gh the entire bowel is not includ ed here. Multil evel degene rative change s noted throug hout the lumbar spine. IMPRES MAIKEL 1. 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 This findin g correl ates with the lesion descri bed on the prior CT. 2. Recomm end referr al to interv ention al Radiol ogy or GI for consul tation regard ing possib le, if any, treatm ent of this AVM. Create d and electr onical ly signed by: Heri david MD Signed Date: 2021 1:15 PM (CT) Dictat ed by: Heri david MD DD: 2021 1:15 PM (CT) DT: 2021 1:15 PM (CT) Page 2 of [id number] [facility] ([facility]) [address] [place], [address], 06/01/2022 20:41:36 Result Notes None recorded. Problems Name Problem SNOMED Code Status Onset Date Resolution Date Notes Provider Name and Address Organization Details Recorded Time Insomnia 654094497 Active 2020 RAE Browning Jocelynn [facility] 4 08:48:52 Carcinoma of prostate 897525570 Active 2018 RAE Browning Jocelynn [facility] 4 08:48:52 Acute dermatitis 26257009 Active 2018 Zeinab oneal, [facility] 4 08:48:52 Rosacea 266377712 Active 2018 Zeinab oneal, [facility] 4 08:48:52 Pain of right knee joint 2785142651674 00 Active 2021 Zeinab oneal, [facility] 4 08:48:52 Hyperlipide shai 25877851 Active 2022 Zeinab oneal, [facility] 4 08:48:52 Impaired fasting glycemia 820331651 Active 2022 Zeinab oneal, [facility] 4 08:48:52 Pain of left knee joint 6818283641084 07 Active 2022 Zeinab oneal, [facility] 4 08:48:52 Pain of knee region 1050406088 Active 2022 Zeinab oneal, [facility] 4 08:48:52 Problem Notes None recorded. Procedures Surgical History Date Name Laterality Status Provider Name and Address Organization Details Recorded Time 11/18/19 23 Medicare Wellness CPT Code, subsequent completed Celeste Bautista RN [facility] 11/16/2022 12:22:29 05/04/19 23 Colonoscopy completed Natalia Montaño CMA [facility] 11/17/2022 12:06:57 Prostatectomy completed Not Available [facility] 06/01/2022 20:39:33 Appendectomy completed Not Available [facility] 06/01/2022 20:39:33 total knee replacement completed Not Available [facility] 06/01/2022 20:39:33 Imaging Results Imaging Date Name Status LastModified by [facility] Details LastModified Time 03/16/2022 imaging/diagno stic result completed [id number] [facility] Add On Lab Orders [address] [place] [address], [address], 06/01/2022 20:41:36 03/17/2022 CT, abdomen, w/wo contrast completed [id number] [facility] ([facility]aging) [address] [place], [address], 06/01/2022 20:41:36 04/08/2021 wrist 3vsw+, davis completed [id number] [facility] (Imaging) [address] [place], [address], 06/01/2022 20:41:36 04/08/2021 XR, wrist, 3 or more view completed [id number] [facility] [address] [place], [address], 06/01/2022 20:41:36 05/21/2021 imaging/diagno stic result completed [id number] [facility] [address], [place], [address], 06/01/2022 20:41:36 03/10/2022 LDCT, chest, for lung cancer screening completed [id number] [facility] On [facility] Orders [address] [place], [address], 06/01/2022 20:41:36 03/10/2022 CT, chest, w/o contrast completed [id number] [facility] (Imaging) [address] [place], [address], 06/01/2022 20:41:36 03/01/2022 imaging/diagno stic result completed [id number] [facility] [address], [place], [address], 06/01/2022 20:41:36 Procedure Notes None recorded. Medical Equipment None Reported. Allergies No known drug allergies Medications Name Sig Start Date Stop Date Status Note LastModified by Organization Details LastModified Time doxycycline hyclate 100 mg capsule Take 1 capsule twice a day by oral route. 01/02 completed Not Available Not Available Not Available trazodone 50 mg tablet Take 1 tablet every day by oral route as needed. active Not Available Not Available No t Available atorvastati n 10 mg tablet TAKE 1 TABLET BY MOUTH EVERY DAY active Not Available Not Available No t Available benzonatate 200 mg capsule Take 1 capsule 3 times a day by oral route as needed. 02/18 completed Not Available Not Available Not Available meloxicam 15 mg tablet Take 1 tablet every day by oral route. active Not Available Not Available No t Available doxycycline hyclate 50 mg capsule TAKE 1 CAPSULE BY MOUTH TWICE DAILY active Not Available Not Available No t Available aspirin 81 mg tablet,che yed release Take 1 tablet every day by oral route. 2021 active Not Available Not Available Not Avai lable tramadol 50 mg tablet 1-2 TABS EVERY 6 HOURS NEEDED active Not Available Not Available No t Available doxycycline monohydrate 50 mg capsule TAKE ONE CAPSULE BY MOUTH TWICE DAILY 05/29 completed Not Available Not Available Not Available diclofenac sodium 75 mg tablet,che yed release TAKE 1 TABLET BY MOUTH TWICE A DAY 2023 active Not Available Not Available Not Avai lable Baby Aspirin 81 mg chewable tablet Chew 1 tablet every day by oral route. 04/08 completed Not Available Not Available Not Available diclofenac sodium 50 mg tablet,che yed release TAKE 1 TABLET BY MOUTH TWICE A DAY 01/02 completed Not Available Not Available Not Available budesonide DR - ER 3 mg capsule,del ayed,extend ed release TAKE 3 TABLETS DAILY FOR 2 WEEKS, THEN 2 TABS DAILY FOR 2 WEEKS, THEN 1 TABLET DAILY FOR 2 WEEKS. 07/31 completed Not Available Not Available Not Available zolpidem 10 mg tablet TAKE 1 TABLET BY MOUTH AT BEDTIME active Not Available Not Available No t Available betamethaso ne dipropionat e 0.05 % lotion APPLY TWICE DAILY TO RASH ON SCALP. DO NOT APPLY TO FACE OR GENITALS 03/29 completed Not Available Not Available Not Available amoxicillin 875 mg-potassiu m clavulanate 125 mg tablet Take 1 tablet every 12 hours by oral route. active Not Available Not Available No t Available ezetimibe 10 mg tablet TAKE 1 TABLET BY MOUTH EVERY DAY active Not Available Not Available No t Available cyclobenzap rine 5 mg tablet TAKE 1 TABLET BY MOUTH 3 TIMES A DAY 05/14 completed Not Available Not Available Not Available Restasis 0.05 % eye drops in a dropperette INSTILL 1 DROP INTO BOTH EYES TWICE A DAY 11/23 completed Not Available Not Available Not Available Restasis 09/11 completed Not Available Not Available Not Available Multivitami n 50 Plus 2019 active Not Available Not Available Not Avai lable diclofenac 1 % topical gel APPLY 2 GRAMS TO THE AFFECTED AREA(S) BY TOPICAL ROUTE 4 TIMES PER DAY 01/12 completed Not Available Not Available Not Available Suprep Bowel Prep Kit 17.5 gram-3.13 gram-1.6 gram oral solution TAKE DIRECTED MAY SUBSTITUT E ANY PEG PREP * 11/23 completed Not Available Not Available Not Available Mirvaso 0.33 % topical gel APPLY A PEA-SIZED AMOUNT BY TOPICAL ROUTE ONCE DAILY TO COVER AREAS OF FACE WITH THIN LAYER AVOIDING THE EYES AND LIPS 04/01 completed Not Available Not Available Not Available Fluzone High-Dose 2018- (PF) 180 mcg/0.5 mL intramuscul ar syringe active Not Available Not Available N ot Available Fluad Quad (6 5yr up)(PF) 60 mcg (15 mcg x 4)/0.5mL IM syringe active Not Available Not Available Not Available BinaxNOW COVID-19 Ag Self Test kit TEST DIRECTED TODAY active Not Available Not Available No t Available Paxlovid 300 mg (150 mg x 2)-100 mg tablets in a dose pack TAKE 3 TABLETS BY MOUTH TWICE A DAY FOR 5 DAYS active Not Available Not Available No t Available Vitals Date Recorded Body mass index (BMI) Body height Oxygen saturation Oxygen saturation in Arterial blood by Pulse oximetry Heart rate Body temperature Body weight Systolic blood pressure Diastolic blood pressure Provider Name and Address Organization Details Last Updated DateTime 2 27.7 kg/m2 172.72 cm 98 % 98 % 87 /min 97.2 [degF] 90100.8 1 g 118 mm[Hg] 78 mm[Hg] Not Available [facility] 3 20:39:54 Date Recorded Body mass index (BMI) Body height Oxygen saturation Oxygen saturation in Arterial blood by Pulse oximetry Heart rate Body temperature Body weight Systolic blood pressure Diastolic blood pressure Provider Name and Address Organization Details Last Updated DateTime 2 27.2 kg/m2 172.72 cm 97 % 97 % 75 /min 97.4 [degF] 48762.0 3 g 122 mm[Hg] 98 mm[Hg] Not Available [facility] 3 20:39:54 Date Recorded Body mass index (BMI) Body height Oxygen saturation Oxygen saturation in Arterial blood by Pulse oximetry Heart rate Body temperature Body weight Systolic blood pressure Diastolic blood pressure Provider Name and Address Organization Details Last Updated DateTime 2 27.5 kg/m2 172.72 cm 98 % 98 % 73 /min 97.9 [degF] 60464.2 2 g 118 mm[Hg] 78 mm[Hg] Not Available [facility] 3 20:39:54 Date Recorded Body mass index (BMI) Body height Oxygen saturation Oxygen saturation in Arterial blood by Pulse oximetry Heart rate Body temperature Body weight Systolic blood pressure Diastolic blood pressure Provider Name and Address Organization Details Last Updated DateTime 2 27.1 kg/m2 172.72 cm 98 % 98 % 81 /min 97.2 [degF] 86325.4 4 g 118 mm[Hg] 82 mm[Hg] Not Available [facility] 3 20:39:54 Date Recorded Body height Body mass index (BMI) Body weight Body temperature Heart rate Oxygen saturation Oxygen saturation in Arterial blood by Pulse oximetry Systolic blood pressure Diastolic blood pressure Provider Name and Address Organization Details Last Updated DateTime 3 172.72 cm 26.6 kg/m2 34304.6 6 g 97.4 [degF] 78 /min 97 % 97 % 122 mm[Hg] 78 mm[Hg] Natalia frey CMA [place] - [facility] 3 12:03:46 Social History Question Answer Notes LastModified by Organizat ion Details LastModified Time Tobacco Smoking Status Former Smoker Not Available [facility] 06/01/2022 20:39:23 Do You Have An Advance Directive? Yes [id number] Information not available 06/01/2022 Are You Blind Or Do You Have Difficulty Seeing? No [id number] Information not available 06/01/2022 What Is Your Level Of Caffeine Consumption? Heavy [id number].[id number] 026 Information not available 06/01/2022 How Much Tobacco Do You Chew? None [id number] Information not available 06/01/2022 Are You Deaf Or Do You Have Serious Difficulty Hearing? Yes [id number] Information not available 06/01/2022 What Type Of Diet Are You Following? REGULAR [id number] 026 Information not available 06/01/2022 Which Illicit Or Recreational Drugs Have You Used? None [id number] 026 Information not available 06/01/2022 Advance Directive- Providers Has Reviewed Directive And Consents To Follow Them (insert Provider Name With Any Objectives In Notes Field) Yes [id number] Information not available 06/01/2022 How Much Tobacco Do You Smoke? 1 PPD [id number] 026 Information not available 06/01/2022 How Many Years Have You Smoked Tobacco? 20 [id number].[id number] 026 Information not available 06/01/2022 Do You Have Difficulty Walking Or Climbing Stairs? No MIGRATION.[id number] 026 Information not available 06/01/2022 Sex: Unknown Functional Status Question Answer Note LastModified by [employer] ion Details LastModified Time What is your level of alcohol consumption? Occasional [id number] 026 Information not available 06/01/2022 Do you or have you ever used smokeless tobacco? Never used smokeless tobacco [id number].[id number] 026 Information not available 06/01/2022 Do you have difficulty doing errands alone? No [id number].[id number] 026 Information not available 06/01/2022 What is your occupation? retired [id number].[id number] 026 Information not available 06/01/2022 Do you have difficulty dressing or bathing? No [id number].[id number] 026 Information not available 06/01/2022 Do you or have you ever used e-cigarettes or vape? Never used electronic cigarettes [id number].[id number] 026 Information not available 06/01/2022 What is your exercise level? Occasional [id number].[id number] 026 Information not available 06/01/2022 Mental Status Question Answer Note LastModified by Organizat ion Details LastModified Time Do you have difficulty concentrating, remembering or making decisions? No [id number] 6 Information not available 06/01/2022 Family History Relationship Description Onset Age of this Age Resolved Age Notes LastModified by Organization Details LastModified Time Mother Family history of malignant neoplasm 88 [id number] Not available 06/01/2022 20:39:34 Mother Heart disease [id number] Not available 06/01/2022 20:39:34 Father Family history of malignant neoplasm [id number] Not available 06/01/2022 20:39:34 Father Colocolostom y MIGRATION.289 [id number] Not available 06/01/2022 20:39:34 Father Family history of stroke 88 [id number].438 [id number] Not available 06/01/2022 20:39:34 Medical History No medical history recorded. Immunizations Vaccine Type Date Status Note Provider Nam e and Address Organization Details Recorded Time Influenza, adjuvanted, quadrivalent, PF 12/21/2020 completed Natalia Montaño CMA null, [place] - [facility] [place] [facility] 11/17/2022 12:03:51 Past Encounters Encounter ID Performer Location Encounter Start Date Encounter Closed Date Diagnosis/Indication Diagnosis SNOMED-CT Code Diagnosis ICD10 Code Diagnosis Note [id number] Georgina Banks MD [facility] [place] [address] [place] [address] 06/15/2020 00:00:00 06/15/2020 20:49:34 [id number] Georgina Banks MD [facility] [place] [address] [place] [address] 10/12/2020 00:00:00 10/12/2020 20:50:36 [id number] Georgina Banks MD [facility] [place] [address] [place] [address] 04/08/2021 00:00:00 04/08/2021 21:37:08 [id number] Georgina Banks MD [facility] [place] [address] [place] [address] 07/08/2021 00:00:00 07/09/2021 06:11:46 [id number] Georgina Banks MD [facility] [place] [address] [facility] [place] [address] 11/23/2021 00:00:00 11/23/2021 21:03:24 [id number] Georgina Banks MD [facility] [place] [address] [place] [address] 02/18/2022 00:00:00 02/18/2022 18:00:55 [id number] Georgina Banks MD [facility] [place] [address] [facility] [place] [address] 11/17/2022 11:55:39 11/17/2022 12:32:20 Adult health examination 558293189 Z00.00 Screening for disorder 862938774 Z13.9 Hyperlipidemia 84595683 E78.5 Impaired f asting glycemia 317500108 R73.01 Health Concerns Section Related Observation LastModified by Organization Detai ls LastModified Time None Recorded Concern Status LastModified by Organization Details LastModified Time None Recorded Advance Directives Directive Y: Payers Encounter Date Sequence Insurance Name Policy Number Policy Elise Covered Member ID Elise Member ID Guarantor Name 11/17/2022 1 [facility] (MEDICARE REPLACEMENT/A DVANTAGE - HMO) [id number] Mac Kenney [id number] Mac Kenney Notes Date Note Type Note Provider Name and Address Organization Details Recorded Time 11/17/2022 text/html Here for [facility]. Needs BW. Had a proctectomy. Had a colonoscopy in 05/26 it was good. No issues knees ache once in awhile. Has numbness on torso of left side of body. Had tests and all was ok. It will come on and goes away in minutes. Has floaters in eye and sees ophtho every year and not concerned. Georgina Banks MD [address], [facility] [address], [place], [address], [facility] 11/17/2022 12:53:51
--- OUTSIDE RECORDS SUMMARY | 2024-08-22 01:50 | XMS_ITS | Clinical Summary ---
Author Organization [facility] Address [address], [address] [address] Phone Care Team Providers Care Business Affairs Manager Name Role Phone Georgina Banks MD Primary Care Provider [phone] Allergies No known active allergies Medications Doxycycline Monohydrate 50 MG TabletIndication s:Rosacea Take 50 mg by mouth every morning. Indications: Rosacea Active cycloSPORINE (RESTASIS) 0.05 % Emulsion as needed. 04/18/2017 Active aspirin EC 81 MG Tablet Delayed Response Take 81 mg by mouth every morning. Active Multiple Vitamin (MULTI-VITAMIN PO) Take by mouth every morning. Active meloxicam (MOBIC) 15 MG Tablet Take 15 mg by mouth every morning. Active Active Problems Problem Noted Date Diagnosed Date Lymphocytic colitis 09/19/2019 History of rectal polyps 09/19/2019 Family hx of colon cancer 09/19/2019 Family History Medical History Relation Name Comments Prostate Cancer Brother 1 Prostate Cancer Brother 2 Colon Cancer Father Stroke Father Heart Disease Mother Lung Cancer Mother Relation Name Status Comments Brother 1 Alive Brother 2 Alive Father Mother Social History Tobacco Use Types Packs/Day Years Used Date Smoking Tobacco: Former Cigarettes 1 20 0 10/08/1977 - 10/08/1997 Smokeless Tobacco: Never Tobacco Cessation:Counseling Given: No Comments:quit 20 yr ago Alcohol Use Standard Drinks/Week Comments Yes 0 (1 standard drink = 0.6 oz pur e alcohol) occiasionally Sex and Gender Information Value Date Recorded Sex Assigned at Not on file 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 Gender Identity Not on file Sexual Orientation Not on file 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 file Not on file Not on file Last Filed Vital Signs Vital Sign Reading Time Taken Comments Blood Pressure 127/89 10/09/2019 1:28 PM CDT Pulse 65 10/09/2019 1:28 PM CDT Temperature 36 C (96.8 F) 10/09/2019 1:28 PM CDT Respiratory Rate 16 10/09/2019 1:28 PM CDT Oxygen Saturation 100% 10/09/2019 1:28 PM CDT Inhaled Oxygen Concentration - - Weight 54.4 kg (120 lb) 10/01/2019 11:00 AM CDT Height 170.2 cm (5' 7 ) 10/01/2019 11:00 AM CDT Body Mass Index 18.79 10/01/2019 11:00 AM CDT Plan of Treatment Health Maintenance Due Date Last Done Comments Hepatitis C Virus (HCV) Screening 1950 TdaP Immunization 1950 Cologuard 2001 Immunochemical Fecal Occult Blood 2001 Zoster Immunization (1 of 2) 2001 Colonoscopy 10/08/2020 10/09/2019, 06/02/2016 Colorectal Cancer Screening 10/08/2020 Influenza Immunization (#1) 12/03/202312/03, 01/02/2018, 02/08/2016, Additional history exists SARS-COV-2 Immunization ( season) 2023 07/21/2021, 01/27/2021 Respiratory Syncytial Virus (RSV) Immunization (Adult) (1 - 1-dose 75+ series) 2026 10/09/2019, 06/02/2016 Pneumococcal Immunization (50+ years) Completed 01/02/2018, 03/10/2017 Pneumococcal Immunization Combined Discontinued 01/02/2018, 03/10/2017 Hepatitis B Immunization Aged Out No longer eligible based on patient's age to complete this topic Meningococcal Immunization (ACWY) Aged Out No longer eligible based on patient's age to complete this topic Rotavirus Immunization Aged Out No lo nger eligible based on patient's age to complete this topic Medical Devices Implanted Type Area Cardiology Clinical Nurse Specialist Device Identifier Shelf Expiration Date Model / Serial / Lot Clip 360 Resolution 235cm - [id number] Implanted:Qty: 2 on 10/09/2019 by Timi Cooney DO at [facility] IMPLANT [employer] 02/09/2022 [id number] / [id number] / [id number] Procedures Procedure Name Priority Date/Time Associated Diagnosis Comments COLONOSCOPY Routine 06/02/2016 from Last 3 Months or Most Recently Relevant to Health Maintenance Results * COLONOSCOPY (06/02/2016) Joaquin Edouard MD PROCEDURE/MINOR SURGICAL ORDERABLES Edited Result - Final from Last 3 Months or Most Recently Relevant to Health Maintenance Insurance MEDICARE C [facility] on file Care Teams Business Affairs Manager Relationship Specialty Start Date End Date Georgina Banks MD [address] [place] [address] [place] [address] PCP - General Registered Nurse Maternal Child 05/15/18
[2024-08-22 06:41] VITALS: BP 135/83; PULSE 88; RESP 18; TEMP 36.4; O2SAT 98
[2024-08-22] MEDS: LACTATED RINGERS 1,000 ML 150 ML IV CONT (06:49)
--- NOTE | 2024-08-22 07:22 | P.PNAN_ITS ---
Anes - Initial Pre Proc Eval Procedure: Operation Date: 08/22/24 08:00 Proposed Procedures p Screening Colonoscopy - Kyle Yanez MD Date/Time: 08/22/24 07:22 Surgeon: Kyle Yanez MD Pre Op Diagnosis: family hx malignant neoplasm of digestive organs Patient Data Age: 74 Gender: M Height: 1.68 m Weight: 79 kg Last Vital Signs Temp 36.4 C 08/22/24 06:41 Pulse 88 08/22/24 06:41 Resp 18 08/22/24 06:41 BP 135/83 08/22/24 06:41 Pulse Ox 98 08/22/24 06:41 O2 Del Method Room Air 08/22/24 06:41 Allergies Allergy/AdvReac Type Severity Reaction Status Date / Time No Known Allergies Allergy Verified 08/22/24 06:40 Home Medications ?Medication ?Instructions ?Recorded ?Confirmed ?Type aspirin 81 mg capsule 81 mg PO DAILY 12/21/21 08/14/24 History diclofenac sodium 75 mg 75 mg PO DAILY 12/21/21 08/14/24 History tablet,delayed release doxycycline hyclate 50 mg tablet 50 mg PO DAILY 12/21/21 08/14/24 History ezetimibe 10 mg tablet 10 mg PO DAILY 12/21/21 08/14/24 History Fish oil BYMOUTH 05/01/24 History Probiotic BYMOUTH 05/01/24 History Patient hx anesthesia problems: none Family hx anesthesia problems: none Results Review: All pre-operative results and documents have been reviewed as part of the pre- operative evaluation. [facility] Past Medical History Medical History (Updated 05/01/24 @ 11:25 by Kyle Yanez MD) History of prostate cancer Colon, diverticulosis Diarrhea Hx-hypospadias Carpal tunnel syndrome Hyperlipidemia Surgical History Surgical History H/O radical prostatectomy History of arthroplasty of both knees History of appendectomy History of vasectomy Family History Family History Father Cerebrovascular accident Family history of congestive heart failure Sibling Malignant neoplasm of prostate Other Carcinoma of colon Family history of lung cancer Social History Social History (Updated 08/22/24 @ 07:30 by LINDSAY Rivas Smoking packs per day: 1 Smoking cigarettes per day: 20.0 Years smoked: 30 Smoking pack-years: 30.00 Smoking status: Former smoker Tobacco type: cigarettes Second hand tobacco smoke exposure: No Smoking end date: 04/03/94 Alcohol intake: current Drinks per week: 14 Alcohol use details: 2 beers/day Substance use type: does not use Lack of Transportation: No Lack of Food: Never True Current Housing: I Have Housing Concerned About Future Housing: No Difficulty Paying Gas/Electric Bills: No Difficulty Paying for Meds: No Currently Unemployed: No Education: Bachelor's Degree Difficulty w/ Childcare or Family Care: No Living arrangements: with family Spiritual care concerns: No Anes - Eval Final PreProcedure Day of Procedure 08/22/24 07:22 Patient weight: overweight Heart: regular rate and rhythm Lungs: clear to auscultation Airway: Mallampati scale class II Neurological: alert and oriented Last oral intake: >/= 8 hours ASA classification: III Emergent: no Anesthetic plan: proceed Anesthesia type and monitoring: general GIVS and standard monitoring Results Review: All pre-operative results and documents have been reviewed as part of the pre- operative evaluation. Informed Consent: The patient's anesthetic plan and its attendant risks and benefits were discussed with the patient/family/POA. Questions were solicited and answers provided to the satisfaction of the patient/family/POA.
--- NOTE | 2024-08-22 07:42 | PM.HPGS ---
History of Present Illness History of Present Illness Consent: Risks, benefits, and alternatives have been discussed and questions answered. Patient agrees to proceed with procedure. Chief complaint: family hx malignant neoplasm of digestive organs Narrative: Mac Babb is a 74 year old male here for colonoscopy, last one 2021, father had colon cancer Review of Systems Review of Systems: All systems reviewed & are unremarkable except as noted in HPI and below PMFSH Past Medical History Medical History (Updated 05/01/24 @ 11:25 by Kyle Yanez MD) History of prostate cancer Colon, diverticulosis Diarrhea Hx-hypospadias Carpal tunnel syndrome Hyperlipidemia Surgical History Surgical History H/O radical prostatectomy History of arthroplasty of both knees History of appendectomy History of vasectomy Family History Family History Father Cerebrovascular accident Family history of congestive heart failure Sibling Malignant neoplasm of prostate Other Carcinoma of colon Family history of lung cancer Social History Social History (Updated 08/22/24 @ 07:30 by Stuart Robert DO) Smoking packs per day: 1 Smoking cigarettes per day: 20.0 Years smoked: 30 Smoking pack-years: 30.00 Smoking status: Former smoker Tobacco type: cigarettes Second hand tobacco smoke exposure: No Smoking end date: 04/03/94 Alcohol intake: current Drinks per week: 14 Alcohol use details: 2 beers/day Substance use type: does not use Lack of Transportation: No Lack of Food: Never True Current Housing: I Have Housing Concerned About Future Housing: No Difficulty Paying Gas/Electric Bills: No Difficulty Paying for Meds: No Currently Unemployed: No Education: Bachelor's Degree Difficulty w/ Childcare or Family Care: No Living arrangements: with family Spiritual care concerns: No Meds Home Medications and Allergies Home Medications ?Medication ?Instructions ?Recorded ?Confirmed ?Type aspirin 81 mg capsule 81 mg PO DAILY 12/21/21 08/14/24 History diclofenac sodium 75 mg 75 mg PO DAILY 12/21/21 08/14/24 History tablet,delayed release doxycycline hyclate 50 mg tablet 50 mg PO DAILY 12/21/21 08/14/24 History ezetimibe 10 mg tablet 10 mg PO DAILY 12/21/21 08/14/24 History Fish oil BYMOUTH 05/01/24 History Probiotic BYMOUTH 05/01/24 History Allergies Allergy/AdvReac Type Severity Reaction Status Date / Time No Known Allergies Allergy Verified 08/22/24 06:40 Vital Signs Vital Signs - 24 hr 08/22/24 06:41 Temperature 97.6 F Pulse Rate 88 Respiratory Rate 18 Blood Pressure 135/83 Pulse Oximetry 98 Oxygen Delivery Room Air Exam Const: General: comfortable and no acute distress HENMT: Face/Nose/Sinus: Normal nares present Eyes: General: appearance normal, both eyes and all related structures Neck: Neck: no JVD Resp: Auscultation: clear to auscultation bilaterally Cardio: Rate: regular rate Rhythm: regular rhythm GI: Inspection: non-distended GI Palp: Yes Soft to palpation Skin: General skin exam: normal color Neuro: Speech: normal speech Extrem: General: normal to inspection Psych: Mental Status: mental status grossly normal Assessment and Plan Assessment and plan (1) Family history of colon cancer: Code(s): Z80.0 - Family history of malignant neoplasm of digestive organs Status: Acute Assessment and Plan: colonoscopy
[2024-08-22 07:57] VITALS: BP 93/77; PULSE 82; RESP 16; O2SAT 95
[2024-08-22 08:07] VITALS: BP 112/88; PULSE 88; RESP 16; O2SAT 100
[2024-08-22 08:17] VITALS: BP 112/86; PULSE 80; RESP 18; O2SAT 100
== END 2024-08-22 08:30 | disposition home or self-care (01) ==
PROVIDERS: PCP Family Medicine; Referring Provider Internal Medicine Gastroenterology; Visit Provider Internal Medicine Gastroenterology
PROC: 0DJD8ZZ Inspection of Lower Intestinal Tract, Via Natural or Artificial Opening Endoscopic (ICD-10-PCS; CPT 45378; principal; 2024-08-22 08:00)
DX: Z12.11 Encounter for screening for malignant neoplasm of colon (principal); D12.2 Benign neoplasm of ascending colon; K63.5 Polyp of colon; K64.8 Other hemorrhoids; Z80.0 Family history of malignant neoplasm of digestive organs; Z87.891 Personal history of nicotine dependence
CPT/HCPCS: 45380; 45385; 88305; J2003; J2704; J7120